=== PATIENT | female | born 1945 | race Caucasian/White ===

== ENCOUNTER 2016-05-16 09:02 | Day surgery (SDC) | payer MEDICARE, OTHER ==
[~2016-05-16 09:02] MED LIST: BUPIVACAINE HCL 0.75% INJ/PF (7.5 MG/1 ML) 10 ML SDV OD PRN; KETOROLAC TROMETHAMINE 0.45% 4 DROP/0.4 ML DROPERETTE OD PRN; LIDOCAINE 4% INJ/PF (40 MG/ML) 5 ML AMPUL OD PRN; TETRACAINE HCL 0.5% OPH SOLN 0.6 ML DROPERETTE OD PRN
[2016-05-16] MEDS: CYCLOPENTOLATE 0.2%/PHENYLEPHRINE 1% OPH SOLN 2 ML OD PRN ×3 (09:50→10:10)
[2016-05-16] MEDS: TROPICAMIDE 1% OPH SOLN 3 ML OD PRN ×3 (09:50→10:10)
[2016-05-16] MEDS: BESIFLOXACIN HCL 0.6% OPH SUSP 5 ML BOTTLE OD PRN ×3 (09:51→10:52)
[2016-05-16] MEDS ORDERED: EPINEPHRINE INJ/PF 1 MG/1 ML AMPULE ONE (10:02)
[2016-05-16] MEDS ORDERED: CHONDR SU A NA/HYALUR INTRAOC KIT (SURGICARE) ONE (10:03)
[2016-05-16] MEDS ORDERED: MIDAZOLAM 2 MG/2 ML INJ ONE (10:10)
[2016-05-16] MEDS ORDERED: FENTANYL CITRATE INJ/PF 100 MCG/2 ML AMPUL ONE (10:11)
--- NOTE | 2016-05-16 11:13 | [facility] OPERATIVE REPORT E ---
[facility] Operative Report NAME: INDRA MITCHELL AGE: 70Y DATE OF SURGERY: 05/16/2016 ROOM: [facility] Operative Report PREOPERATIVE DIAGNOSIS: CATARACT, RIGHT EYE. POSTOPERATIVE DIAGNOSIS: CATARACT, RIGHT EYE. PROCEDURE PERFORMED: PHACOEMULSIFICATION WITH ReSTOR LENS IMPLANT RIGHT EYE. SURGEON: DAVID MORENO MD ANESTHESIA: TOPICAL WITH MAC. INDICATIONS FOR SURGERY: Difficulty with glare with night driving. Best corrected visual acuity 20/40. PROCEDURE: The patient was brought to the Operating Room and placed on the operative table. Following tetracaine drops, topical anesthesia was administered. This consisted of instrument wipe pledgets soaked in a solution of 4% Xylocaine mixed with 0.75% Marcaine in a 1:2 ratio. A 2 x 1 cm pledget was placed in the superior fornix. A 1 x 1 cm pledget was placed in the inferior fornix. The eye was patched shut for 5 minutes. The patch was removed. The eye was sterilely prepped and draped in the usual manner. Lid speculum was placed in the eye. The pledgets were removed. 4-0 black silk sutures were placed around the superior and the inferior rectus muscles to be used as traction. A conjunctival peritomy was made at the 10 o'clock position. Hemostasis was obtained with bipolar cautery. A posterior limbal groove was created using a crescent knife and dissected anteriorly towards the cornea. A sharp point blade was used to create a paracentesis site at the 2 o'clock position. A 2.4 mm keratome was used to enter the anterior chamber through the groove. Viscoelastic was injected into the anterior chamber. An anterior capsulotomy was performed using Utrata forceps in a capsulorrhexis fashion. Hydrodissection and hydrodelineation were performed. Phacoemulsification was performed in thgylh-spa-zsfrdnn technique. A total of 1 minute phaco time was used. Following this, the I/A unit was used to remove residual cortex. Viscoelastic was injected into the capsular bag. Intraocular lens model [id number], 20.5 diopters, serial number [id number] was placed in the capsular bag. The I/A unit was used to remove residual viscoelastic. The wound was seen to be watertight under high and low pressure, and no sutures were placed. The intraocular lens was well centered. The pressure was adjusted in the eye to normal pressure. The 4-0 black silk sutures and lid speculum were removed. The eye was shielded after Besivance drops were placed. The patient tolerated the procedure well and was sent to the Recovery Room in good condition. DICTATING PHYSICIAN: DAVID MORENO M.D. DICTATING PHYSICIAN: DAVID MORENO M.D. [id number] PHY#: [id number] ID: [id number] JOB#: [id number] ACCT: [id number] cc:DAVID MORENO M.D. > MTDD
--- NOTE | 2016-05-16 11:14 | DISCHARGE SUMMARY E ---
Discharge Summary NAME: INDRA MITCHELL : 1945 AGE: 70Y ADMITTED: 05/16/2016 DISCHARGED: FINAL DIAGNOSIS: Cataract right eye. HOSPITAL COURSE: The patient is a 70-year-old lady who underwent uneventful cataract extraction with ReSTOR intraocular lens implant right eye on 05/16/16. She will be discharged to home. She is instructed to resume preoperative medications. Take Tylenol as needed for discomfort. Keep her eye shielded. to use besivance, ilevro and durezol at 3:00 p.m. and 8:00 p.m. Follow up in my office this afternoon DICTATING PHYSICIAN: DAVID MORENO M.D. [id number] PHY#: [id number] ID: [id number] JOB#: [id number] ACCT: [id number] cc:DAVID MORENO M.D. > MTDD
== END 2016-05-16 11:49 | disposition home or self-care (01) ==
LOC: SC 09:02
PROVIDERS: ATTEND Ophthalmology
PROC: 08RJ3JZ Replacement of Right Lens with Synthetic Substitute, Percutaneous Approach (ICD-10-PCS; principal; 2016-05-16 10:30)
DX: H25.13 Age-related nuclear cataract, bilateral (principal); E03.9 Hypothyroidism, unspecified; E78.00 Pure hypercholesterolemia, unspecified; I10 Essential (primary) hypertension; H16.223 Keratoconjunctivitis sicca, not specified as Sjogren's, bilateral; R51 Headache; Z79.899 Other long term (current) drug therapy
CPT/HCPCS: 66984; V2788; J2250; J3490 ×3; A9270; J0171; J3010; 142

== ENCOUNTER 2016-06-03 09:33 | Day surgery (SDC) | payer MEDICARE, OTHER ==
[~2016-06-03 09:33] MED LIST changes: -BUPIVACAINE HCL 0.75% INJ/PF (7.5 MG/1 ML) 10 ML SDV OD PRN; +BUPIVACAINE HCL 0.75% INJ/PF (7.5 MG/1 ML) 10 ML SDV OS PRN; -KETOROLAC TROMETHAMINE 0.45% 4 DROP/0.4 ML DROPERETTE OD PRN; +KETOROLAC TROMETHAMINE 0.45% 4 DROP/0.4 ML DROPERETTE OS PRN; -LIDOCAINE 4% INJ/PF (40 MG/ML) 5 ML AMPUL OD PRN; +LIDOCAINE 4% INJ/PF (40 MG/ML) 5 ML AMPUL OS PRN; -TETRACAINE HCL 0.5% OPH SOLN 0.6 ML DROPERETTE OD PRN
[2016-06-03] MEDS ORDERED: CHONDR SU A NA/HYALUR INTRAOC KIT (SURGICARE) ONE (09:47)
[2016-06-03] MEDS ORDERED: PHENYLEPHRINE/KETOROLAC 1%-0.3% 4 ML VIAL ONE (09:47)
[2016-06-03] MEDS: TETRACAINE HCL 0.5% OPH SOLN 0.6 ML DROPERETTE OS PRN ×2 (09:55→10:22)
[2016-06-03] MEDS: CYCLOPENTOLATE 0.2%/PHENYLEPHRINE 1% OPH SOLN 2 ML OS PRN ×3 (09:56→10:20)
[2016-06-03] MEDS: TROPICAMIDE 1% OPH SOLN 3 ML OS PRN ×3 (09:56→10:20)
[2016-06-03] MEDS: BESIFLOXACIN HCL 0.6% OPH SUSP 5 ML BOTTLE OS PRN ×4 (09:57→11:18)
[2016-06-03] MEDS ORDERED: FENTANYL CITRATE INJ/PF 100 MCG/2 ML AMPUL ONE (10:28)
[2016-06-03] MEDS ORDERED: MIDAZOLAM 2 MG/2 ML INJ ONE ×2 (10:28→10:53)
--- NOTE | 2016-06-03 11:33 | [facility] OPERATIVE REPORT E ---
[facility] Operative Report NAME: INDRA MITCHELL AGE: 70Y DATE OF SURGERY: 06/03/2016 ROOM: PREOPERATIVE DIAGNOSIS: CATARACT, LEFT EYE. POSTOPERATIVE DIAGNOSIS: CATARACT, LEFT EYE. PROCEDURE PERFORMED: Phacoemulsification with ReSTOR intraocular lens, left eye. SURGEON: DAVID MORENO M.D. ANESTHESIA: Topical with MAC. INDICATIONS FOR SURGERY: Difficulty reading with glare and imbalance after cataract surgery in the right eye. Best corrected visual acuity: 20/50. DESCRIPTION OF PROCEDURE: The patient was brought to the operating room and placed on the operative table. Following tetracaine drops, topical anesthesia was administered. This consisted of instrument wipe pledgets soaked in a solution of 4% Xylocaine mixed with 0.75% Marcaine in a 1:2 ratio. A 2 x 1 cm pledget was placed in the superior fornix. A 1 x 1 cm pledget was placed in the inferior fornix. The eye was patched shut for 5 minutes. The patch was removed. The eye was sterilely prepped and draped in the usual manner. Lid speculum was placed in the eye. The pledgets were removed, 4-0 black silk sutures were placed around the superior and the inferior rectus muscles to be used as traction. A conjunctival peritomy was made at the 10 o'clock position. Hemostasis was obtained with bipolar cautery. A posterior limbal groove was created using a crescent knife and dissected anteriorly towards the cornea. A sharp point blade was used to create a paracentesis site at the 2 o'clock position. A 2.4 mm keratome was used to enter the anterior chamber through the groove. Viscoelastic was injected into the anterior chamber. An anterior capsulotomy was performed using Utrata forceps in a capsulorrhexis fashion. Hydrodissection and hydrodelineation were performed. Phacoemulsification was performed in kajcts-xmm-pujqupo technique. A total of 1 minute 6 seconds total phaco time was used. Following this, the I/A unit was used to remove residual cortex. Viscoelastic was injected into the capsular bag. Intraocular lens Model [id number], 21.0 diopter, serial number [id number] was placed in the capsular bag. The I/A unit was used to removed residual viscoelastic. The wound was seen to be watertight under high and low pressure, and no sutures were placed. The intraocular lens was well centered. The pressure was adjusted in the eye to normal pressure. The 4-0 black silk sutures and lid speculum were removed. The eye was shielded after Besivance drops were placed. The patient tolerated the procedure well and was sent to the recovery room in good condition. DICTATING PHYSICIAN: DAVID MORENO M.D. [id number] PHY#: [id number] ID: [id number] JOB#: [id number] ACCT: [id number] cc:DAVID MORENO M.D. >
--- NOTE | 2016-06-03 11:38 | [facility]ARE DISCHARGE SUMMARY E ---
[facility] Discharge Summary NAME: INDRA MITCHELL AGE: 70Y ADMITTED: 06/03/2016 DISCHARGED: 06/03/2016 PREOPERATIVE DIAGNOSIS: CATARACT, LEFT EYE. POSTOPERATIVE DIAGNOSIS: CATARACT, LEFT EYE. HOSPITAL COURSE: Patient is a 70-year-old lady who underwent uneventful cataract extraction with ReSTOR intraocular lens implant, left eye, on 06/03/2016. DISPOSITION: She will be discharged to home. She was instructed to resume preoperative medications; take Tylenol as needed for discomfort; to keep her eye shielded; to use Besivance, Durezol, and Ilevro at 3:00 p.m. and 8:00 p.m.; and to follow up in my office in 1 day. DICTATING PHYSICIAN: DAVID MORENO M.D. [id number] PHY#: [id number] ID: [id number] JOB#: [id number] ACCT: [id number] cc:DAVID MORENO M.D. >
== END 2016-06-03 12:10 | disposition home or self-care (01) ==
LOC: SC 09:33
PROVIDERS: ATTEND Ophthalmology
PROC: 08RK3JZ Replacement of Left Lens with Synthetic Substitute, Percutaneous Approach (ICD-10-PCS; principal; 2016-06-03 11:00)
DX: H25.12 Age-related nuclear cataract, left eye (principal); Z96.1 Presence of intraocular lens; E07.9 Disorder of thyroid, unspecified; Z79.899 Other long term (current) drug therapy
CPT/HCPCS: 66984; V2788; J2250; J3490 ×3; A9270; J3010; C9447; 142

== ENCOUNTER → 2016-10-07 | Outpatient (CLI) | payer MEDICARE, OTHER ==
--- NOTE | 2016-10-07 18:02 | RADIOLOGY REPORT (SQ) ---
EXAM DESCRIPTION: MRI HEAD COMBO COMPLETED DATE/TIME: 10/07/2016 2:54 pm REASON FOR STUDY: HEADACHE (R51), OTHER FATIGUE (R53.83), HYPOTHYROIDISM (E03.9), NONSCARRING R51 H EADACHE R53.83 OTHER FATIGUE E03.9 HYPOTHYROIDISM, UNSPECIFIED COMPARISON: None. TECHNIQUE: Multiplanar imaging includes noncontrasted T1, T2, FLAIR, diffusion with ADC map and post gadolinium contrast T1 sequences. Images stored on PACS. Additional thin section sagittal and coronal T2, T1 precontrast, T1 postcontrast images through the p ituitary fossa were obtained. CONTRAST TYPE AND DOSE: 15 mL Multihance. RENAL FUNCTION: GFR > 60. LIMITATIONS: None. FINDINGS: Pituitary fossa: Pituitary gland is normal size for age, 6 mm craniocaudad by 11 mm AP x 1 2 mm transverse. A less than 2 mm cyst is present in the inferior aspect of the anterior lobe pituit marcia of doubtful significance. Pituitary infundibulum is midline. Suprasellar cistern is normal. Ca vernous sinuses are unremarkable CSF SPACES: Normal in size and contour. No hemorrhage. CEREBRUM: Extensive increase FLAIR/ T2 white matter signal in the bifrontal ossified vessels, and bip arietal white matter. May represent old demyelinating disease or diffuse small vessel ischemic salas e. No MR evidence of acute intracranial hemorrhage, acute ischemic change, acute hemorrhage or midli ne shift. POSTERIOR FOSSA: Chronic appearing high signal in the mid hugo likely carotid small vessel disease. N o hemorrhage. No edema, masses, or mass effect. Internal auditory canals, cerebellopontine angles, ma stoids normal. No enhancing lesions. No abnormal enhancement post contrast. DIFFUSION IMAGING: Negative for acute or subacute infarction. ORBITS: No masses. Globes post cataract surgery. PARANASAL SINUSES: No fluid levels. Mucosa normal. OTHER: No other significant finding. IMPRESSION: No findings worrisome for pituitary tumor. Tiny inferior aspect anterior lobe of doubtf ul significance. Diffuse white matter disease, either old demyelinating disease or chronic small vessel disease. EVIDENCE OF ACUTE STROKE: NO. TECHNICAL DOCUMENTATION: JOB ID: [id number] [employer]- All Rights Reserved
== END ==
LOC: RAD 13:17
PROVIDERS: ATTEND Nurse Practitioner Primary Care
DX: R51 Headache (principal); R53.83 Other fatigue; E03.9 Hypothyroidism, unspecified; L65.9 Nonscarring hair loss, unspecified
CPT/HCPCS: 70553; A9577

== ENCOUNTER 2019-07-10 12:57 | Emergency (ER) | payer MEDICARE, OTHER ==
--- NOTE | 2019-07-10 13:09 | ER Document Report ---
ED Medical Screen (RME) - General Chief Complaint: Nausea Stated Complaint: NAUSEA Time Seen by Provider: 07/10/19 13:03 Primary Care Provider: QUIANA CHOWDHURY NP [Primary Care Provider] - Follow up as needed Mode of Arrival: Ambulatory Information source: Patient Notes: 74-year-old female with history of high blood pressure presents to the emergency department with complaints of severe nausea for almost a month. She reports she did see her primary care provider and was diagnosed with gallstones. She reports she has had extreme nausea and cannot stand it. She reports she was also tested for COVID and that was negative. Denies fever vomiting diarrhea. She reports she took Zofran 3 hours ago without relief of symptoms. Patient reports she is supposed to follow-up with Dr. Mccann. He is supposed be called when she arrived. I did attempt to call Dr. Mccann at [phone] and he is not logged in. I have greeted and performed a rapid initial assessment of this patient. A comprehensive ED assessment and evaluation of the patient, analysis of test results and completion of the medical decision making process will be conducted by additional ED providers. TRAVEL OUTSIDE OF THE [place] IN LAST 30 DAYS: No - Related Data Allergies/Adverse Reactions: No Known Allergies Allergy (Verified 07/10/19 13:02) Past Medical History - Social History Chew tobacco use (# tins/day): No Frequency of alcohol use: None Drug Abuse: None - Past Medical History Cardiac Medical History: Reports: Hx Hypertension Denies: Hx Heart Attack Pulmonary Medical History: Denies: Hx Asthma Neurological Medical History: Denies: Hx Cerebrovascular Accident, Hx Seizures GI Medical History: Denies: Hx Hepatitis, Hx Hiatal Hernia, Hx Ulcer Infectious Medical History: Denies: Hx Hepatitis Past Surgical History: Reports: Hx Hysterectomy. Denies: Hx Mastectomy, Hx Open Heart Surgery, Hx Pacemaker Physical Exam - Vital signs Vitals: Temp Pulse Resp BP Pulse Ox 98.0 F 65 16 154/80 H 94 07/10/19 13:01 07/10/19 13:01 07/10/19 13:01 07/10/19 13:01 07/10/19 13:01 Course - Vital Signs Vital signs: Temp Pulse Resp BP Pulse Ox 98.0 F 65 16 154/80 H 94 07/10/19 13:03 07/10/19 13:01 07/10/19 13:01 07/10/19 13:01 07/10/19 13:01 Doctor's Discharge - Discharge Referrals: QUIANA CHOWDHURY BELT WEAVER [Primary Care Provider] - Follow up as needed
[2019-07-10 13:28] LABS: APPEARANCE,URINE CLEAR; BILIRUBIN,URINE NEGATIVE (NEGATIVE); COLOR,URINE YELLOW; GLUCOSE, URINE NEGATIVE (NEGATIVE); KETONES,URINE NEGATIVE (NEGATIVE); LEUKOCYTE ESTERASE,URINE TRACE (NEGATIVE); NITRITE,URINE NEGATIVE (NEGATIVE); PROTEIN,URINE NEGATIVE (NEGATIVE); URINE SPECIFIC GRAVITY 1.006; UROBILINOGEN,URINE NEGATIVE mg/dL (<2.0)
[2019-07-10] MEDS ORDERED: RINGERS SOLUTION,LACTATED 1,000 ML IV ONE (13:34)
[2019-07-10] MEDS ORDERED: METOCLOPRAMIDE HCL INJ/PF 10 MG/2 ML SDV IV ONE (13:34)
[2019-07-10 13:41] LABS: ABSOLUTE BASOPHILS # (AUTO) 0.1 10^3/uL (0.0-0.2); ABSOLUTE LYMPHOCYTES (AUTO) 1.6 10^3/uL (0.5-4.7); ABSOLUTE MONOCYTES (AUTO) 0.5 10^3/uL (0.1-1.4); ABSOLUTE NEUT (AUTO) 3.1 10^3/uL (1.7-8.2); EOSINOPHILS % (AUTO) 0.7 % (0-6); HEMATOCRIT 44.3 % (36.0-47.0); HEMOGLOBIN 15.1 g/dL (12.0-15.5); LYMPHOCYTES % (AUTO) 30.4 % (13-45); MEAN CORPUSCULAR HEMOGLOBIN 32.8 pg (27.0-33.4); MEAN CORPUSCULAR VOLUME 97 fl (80-97); PLATELET COUNT 233 10^3/uL (150-450); RED BLOOD COUNT 4.59 10^6/uL (3.72-5.28); SEGMENTED NEUTROPHILS % (AUTO) 58.9 % (42-78); TOTAL CELLS COUNTED % (AUTO) 100 %; WHITE BLOOD COUNT 5.3 10^3/uL (4.0-10.5)
--- NOTE | 2019-07-10 13:41 | ER Document Report ---
ED GI/ - General Chief Complaint: Nausea Stated Complaint: NAUSEA Time Seen by Provider: 07/10/19 13:03 Primary Care Provider: QUIANA CHOWDHURY NP [NURSE PRACTITIONER] - Follow up as needed JESUSITA MCCANN MD [ACTIVE STAFF] - Follow up in 3-5 days (Call office for an outpatient follow-up appointment.) Mode of Arrival: Ambulatory Information source: Patient Notes: 74-year-old female past medical history significant for hypertension, GERD, hypothyroidism, anxiety presents to the emergency room with persistent nausea and vomiting that started a month ago. Patient states she saw her primary care physician last was diagnosed with gallstones waiting to get a HIDA scan scheduled. Patient states the nausea vomiting has gotten persistently worse. Is able to tolerate fluids but no food. States that she is supposed be following up with Dr. Mccann triage attempted to call him on her arrival without success. She denies any fevers, no abdominal pain. TRAVEL OUTSIDE OF THE [place] IN LAST 30 DAYS: No - Related Data Allergies/Adverse Reactions: No Known Allergies Allergy (Verified 07/10/19 13:02) Past Medical History - General Information source: Patient - Social History Smoking Status: Never Smoker Chew tobacco use (# tins/day): No Frequency of alcohol use: None Drug Abuse: None Family History: Reviewed & Not Pertinent Patient has homicidal ideation: No - Past Medical History Cardiac Medical History: Reports: Hx Hypertension Denies: Hx Heart Attack Pulmonary Medical History: Denies: Hx Asthma Neurological Medical History: Denies: Hx Cerebrovascular Accident, Hx Seizures GI Medical History: Denies: Hx Hepatitis, Hx Hiatal Hernia, Hx Ulcer Infectious Medical History: Denies: Hx Hepatitis Past Surgical History: Reports: Hx Hysterectomy. Denies: Hx Mastectomy, Hx Open Heart Surgery, Hx Pacemaker Physical Exam - Vital signs Vitals: Temp Pulse Resp BP Pulse Ox 98.0 F 65 16 154/80 H 94 07/10/19 13:01 07/10/19 13:01 07/10/19 13:01 07/10/19 13:01 07/10/19 13:01 - General General appearance: Appears well, Alert In distress: Moderate - Respiratory Respiratory status: No respiratory distress Chest status: Nontender Breath sounds: Normal Chest palpation: Normal - Cardiovascular Rhythm: Regular Heart sounds: Normal auscultation Murmur: No - Abdominal Inspection: Normal Distension: No distension Bowel sounds: Normal Tenderness: Nontender Organomegaly: No organomegaly - Neurological Neuro grossly intact: Yes Cognition: Normal Orientation: AAOx4 [place] Coma Scale Eye Opening: Spontaneous Luz Coma Scale Verbal: Oriented [place] Coma Scale Motor: Obeys Commands Luz Coma Scale Total: 15 Speech: Normal Motor strength normal: LUE, RUE, LLE, RLE Sensory: Normal - Skin Skin Temperature: Warm Skin Moisture: Dry Skin Color: Normal Course - Re-evaluation Re-evalutation: 07/10/19 14:10 Reviewed lab and ultrasound results with patient. Aware that I have spoken with Dr. Mccann who recommends a cardiac enzymes, CT abdomen and pelvis with IV co ntrast only. Patient is agreeable to additional testing. Complains of persistent nausea will medicate with Phenergan and reevaluate. 07/10/19 15:31 Patient is resting comfortably at this time. Denies any nausea, able to tolerate p.o. fluids. Aware that I have spoken with Dr. Mccann again and all test results were reviewed with him. We will see patient as an outpatient for possible endoscopy. Patient was counseled to take the Phenergan as prescribed. She was given strict return to the emergency room guidelines. Call Dr. Mccann office for a follow-up appointment to discuss possible upper endoscopy. She is to return to the emergency room for any new or worsening symptoms. All que stions were answered. Patient verbalized understanding and agree with plan of care. - Vital Signs Vital signs: Temp Pulse Resp BP Pulse Ox 98.0 F 65 16 154/80 H 94 07/10/19 13:03 07/10/19 13:01 07/10/19 13:01 07/10/19 13:01 07/10/19 13:01 - Laboratory Result Diagrams: 07/10/19 13:29 07/10/19 13:29 Laboratory results interpreted by me: 07/10/19 07/10/19 13:17 13:29 Carbon Dioxide 31 H Ur Leukocyte Esterase TRACE H - Diagnostic Test Radiology reviewed: Reports reviewed - EKG Interpretation by Ar EKG shows normal: Sinus rhythm Additional EKG results interpreted by me: 07/10/19 13:35 EKG was interpreted by ED physician Dr. Benavides No acute STEMI - Consults Dr. Mccann Time consulted: 14:10 Reason for consultation: 07/10/19 14:22 Sent by PCP for possible gallstones. Would like call back after we get the CAT scan and cardiac enzymes. 07/10/19 15:[address] Mccann reviewed all labs, EKG, and CT scan. Patient is comfortable at this time denies any nausea remains pain-free. He will follow her up as an outpatient for possible upper endoscopy. Agrees with evaluation, agrees with plan, agrees with discharging patient home. Consulted provider: follow-up in office Discharge - Discharge Clinical Impression: Nausea & vomiting Qualifiers: Vomiting type: unspecified Vomiting Intractability: non-intractable Qualified Code(s): R11.2 - Nausea with vomiting, unspecified Condition: Stable Disposition: HOME, SELF-CARE Instructions: Antinausea Medication ([facility]), Vomiting ([facility]) Additional Instructions: Continue to push fluids, bland diet, outpatient follow-up with Dr. Mccann as discussed. Phenergan as prescribed. Return to the emergency room for any new or worsening symptoms. Prescriptions: Promethazine HCl [Phenergan 25 mg Tablet] 1 tab PO Q6H PRN #15 tablet PRN Reason: Referrals: QUIANA CHOWDHURY NP [NURSE PRACTITIONER] - Follow up as needed JESUSITA MCCANN MD [ACTIVE STAFF] - Follow up in 3-5 days (Call office for an outpatient follow-up appointment.)
--- NOTE | 2019-07-10 13:57 | RADIOLOGY REPORT (SQ) ---
EXAM DESCRIPTION: U/S ABDOMEN LIMITED W/O DOP IMAGES COMPLETED DATE/TIME: 07/10/2019 1:48 pm REASON FOR STUDY: hx of gallstones, nausea COMPARISON: None. TECHNIQUE: Dynamic and static grayscale images acquired of the abdomen and recorded on PACS. Additio nal selected color Doppler and spectral images recorded. LIMITATIONS: None. FINDINGS: PANCREAS: No masses. Visualized pancreatic duct normal caliber. LIVER: No masses. Echotexture normal. LIVER VASCULATURE: Normal directional flow of the main portal vein and hepatic veins. GALLBLADDER: No stones. Normal wall thickness. No pericholecystic fluid. ULTRASOUND-DETECTED THOMAS'S SIGN: Negative. INTRAHEPATIC DUCTS AND COMMON DUCT: CBD and intrahepatic ducts normal caliber. No filling defects. INFERIOR VENA CAVA: Normal flow. AORTA: No aneurysm. RIGHT KIDNEY: Normal size. Normal echogenicity. No solid or suspicious masses. No hydronephrosis. No calcifications. PERITONEAL AND RIGHT PLEURAL SPACE: No ascites or effusions. OTHER: No other significant findings. IMPRESSION: NORMAL RIGHT UPPER QUADRANT ULTRASOUND. TECHNICAL DOCUMENTATION: JOB ID: [id number] [employer]- All Rights Reserved Reading location - IP/workstation name: [email or web address]
[2019-07-10 14:02] LABS: ALBUMIN 4.6 g/dL (3.5-5.0); ALKALINE PHOSPHATASE 60 U/L (38-126); AMYLASE 85 U/L (30-110); ANION GAP 7 (5-19); ASPARTATE AMINO TRANSFERASE 26 U/L (14-36); BILIRUBIN,TOTAL 0.6 mg/dL (0.2-1.3); BLOOD UREA NITROGEN 8 mg/dL (7-20); CALCIUM 9.8 mg/dL (8.4-10.2); CARBON DIOXIDE 31 mmol/L (22-30); CHLORIDE 101 mmol/L (98-107); GLUCOSE 100 mg/dL (75-110)
[2019-07-10] MEDS ORDERED: PROMETHAZINE HCL INJ 25 MG/1 ML VIAL IV ONE (14:20)
[2019-07-10 14:47] LABS: CREATINE KINASE MB 0.35 ng/mL (<4.55)
[2019-07-10 14:48] LABS: TROPONIN I < 0.012 ng/mL
--- NOTE | 2019-07-10 15:06 | RADIOLOGY REPORT (SQ) ---
EXAM DESCRIPTION: CT ABD/PELVIS WITH IV ONLY IMAGES COMPLETED DATE/TIME: 07/10/2019 2:51 pm REASON FOR STUDY: nausea COMPARISON: None. TECHNIQUE: CT scan of the abdomen and pelvis performed using helical scanning technique with dynamic intravenous contrast injection. No oral contrast. Images reviewed with lung, soft tissue, and bone windows. Reconstructed coronal and sagittal MPR images reviewed. Delayed images for evaluation of the urinary system also acquired. All images stored on PACS. All CT scanners at this facility use dose modulation, iterative reconstruction, and/or weight based d osing when appropriate to reduce radiation dose to as low as reasonably achievable (ALARA). [facility]: Dose Right [facility]: CareDose [facility]: Dose Right [facility]: Teradose 4D [facility]: [facility] CONTRAST TYPE AND DOSE: contrast/concentration: Isovue 350.00 mg/ml; Total Contrast Delivered: 80.0 ml; Total Saline Delivered: 68.0 ml RENAL FUNCTION: BUN 8 creatinine 0.72. RADIATION DOSE: CT Rad equipment meets quality standard of care and radiation dose reduction techniq ues were employed. CTDIvol: 5.5 - 6.8 mGy. DLP: 635 mGy-cm.. LIMITATIONS: None. FINDINGS: LOWER CHEST: No significant findings. No nodules or infiltrates. LIVER: Normal size. No masses. No dilated ducts. SPLEEN: Normal size. No focal lesions. PANCREAS: No masses. No significant calcifications. No adjacent inflammation or peripancreatic fluid collections. Pancreatic duct not dilated. GALLBLADDER: No identified stones by CT criteria. No inflammatory changes to suggest cholecystitis. ADRENAL GLANDS: No significant masses or asymmetry. RIGHT KIDNEY AND URETER: No solid masses. No significant calcifications. No hydronephrosis or hyd roureter. LEFT KIDNEY AND URETER: No solid masses. No significant calcifications. No hydronephrosis or hydr oureter. AORTA AND VESSELS: No aneurysm. No dissection. Renal arteries, SMA, celiac without stenosis. RETROPERITONEUM: No retroperitoneal adenopathy, hemorrhage or masses. BOWEL AND PERITONEAL CAVITY: No masses or inflammatory changes. No free fluid or peritoneal masses. APPENDIX: Not visualized. PELVIS: No mass. No free fluid. Normal bladder. ABDOMINAL WALL: No masses. No hernias. BONES: No significant or acute findings. OTHER: No other significant finding. IMPRESSION: NO SIGNIFICANT OR ACUTE FINDING IN THE ABDOMEN OR PELVIS ON CT SCAN WITH IV CONTRAST. TECHNICAL DOCUMENTATION: JOB ID: [id number] Quality ID # [id number]: Final reports with documentation of one or more dose reduction techniques (e.g., Au tomated exposure control, adjustment of the mA and/or kV according to patient size, use of iterative reconstruction technique) 2010 [employer]- All Rights Reserved Reading location - IP/workstation name: [email or web address]
[2019-07-10 16:06] VITALS: BP 103/74
--- NOTE | 2019-07-10 20:24 | EKG REPORT ---
SEVERITY:- BORDERLINE ECG - SINUS RHYTHM PROBABLE LEFT ATRIAL ABNORMALITY : Confirmed by: Keena Smith MD 10-Jul-2019 20:24:15
== END 2019-07-10 16:10 | disposition home or self-care (01) ==
LOC: ER 12:57
DX: R11.2 Nausea with vomiting, unspecified (principal); I10 Essential (primary) hypertension; K21.9 Gastro-esophageal reflux disease without esophagitis; E03.9 Hypothyroidism, unspecified; F41.9 Anxiety disorder, unspecified
CPT/HCPCS: 93005; 99284; 96361; 96374; 96375; 36415; 82553; 82150; 82550; 83690; 85025; 80053; 81001; 84484; 76705; 74177; 93010; J2765; J2550; J7120

== ENCOUNTER 2019-07-15 13:05 | Inpatient (IN) | payer MEDICARE, OTHER ==
[2019-07-15] MEDS ORDERED: NORMAL SALINE 1000 ML 2,000 ML IV ONE (14:15)
[2019-07-15 15:04] LABS: ALBUMIN 3.8 g/dL (3.5-5.0); ALKALINE PHOSPHATASE 53 U/L (38-126); AMYLASE 61 U/L (30-110); ANION GAP 7 (5-19); ASPARTATE AMINO TRANSFERASE 24 U/L (14-36); BILIRUBIN,TOTAL 0.5 mg/dL (0.2-1.3); BLOOD UREA NITROGEN 6 mg/dL (7-20); CARBON DIOXIDE 28 mmol/L (22-30); CHLORIDE 105 mmol/L (98-107); GLUCOSE 90 mg/dL (75-110); POTASSIUM 3.7 mmol/L (3.6-5.0); TOTAL PROTEIN 6.6 g/dL (6.3-8.2)
[2019-07-15] MEDS: DEXTROSE 5%-LACTATED RINGERS 1,000 ML IV PRN ×2 (16:33→23:03)
--- NOTE | 2019-07-15 16:36 | PDOC H&P ---
History of Present Illness Admission Date/PCP: 07/15/19 13:05 BRUNO MENDEZ MD Patient complains of: Chronic nausea dry heaves with satiety History of Present Illness: INDRA MITCHELL is a 74 year old female who presents with complaints of nausea and dry heaves patient came to the surgical office today for consult with Dr. Siobhan mulligan complaining of extreme nausea and vomiting however the vomiting is not productive and only dry heaves. Patient states that she has had excessive belching and bloating. Patient states that she has had an abdominal ultra sound [facility] on 07/07/2019 with findings of gallstones she states that she is unable to eat due to the nausea has not lost approximately 10 pounds in the last 10 days patient states that she has had constant nausea patient is scheduled for an EGD on 07/27/2019 She states she has had a loss of her appetite unable to have bowel movements and has not had a normal bowel movement in the last 7 to 10 days admitted to hospital today for further work-up. In addition to that she is underwent 2 CT scans of her abdomen pelvis over the last few days one at [facility] 2 days ago and went [place] here at the [facility] 6 days ago both studies were interpreted as normal she denies any his tory of ulcer disease she denies any history of cancer she is also seen at least 3 separate primary care physicians for these complaints she is very complains of being very anxious states that she has an anxiety disorder is on Prozac which was recently switched to Lexapro and then back to Prozac Past Medical History Cardiac Medical History: Reports: Hypertension Denies: Myocardial Infarction Pulmonary Medical History: Denies: Asthma Neurological Medical History: Denies: Seizures GI Medical History: Denies: Hepatitis, Hiatal Hernia Psychiatric Medical History: Reports: Depression Hematology: Denies: Anemia, Sickle Cell Disease Past Surgical History Past Surgical History: Reports: Hysterectomy Denies: Amputation, Mastectomy, Pacemaker Social History Smoking Status: Former Smoker Number of Years Smokin Last Time Smoked: 60 Frequency of Alcohol Use: None Hx Recreational Drug Use: No Drugs: None Hx Prescription Drug Abuse: No Family History Family History: Reviewed & Not Pertinent Parental Family History Reviewed: No Children Family History Reviewed: NA Sibling(s) Family History Reviewed.: NA Medication/Allergy Home Medications: Levothyroxine Sodium [Synthroid 50 Mcg Tablet] 50 mcg PO Q2D 05/12/16 Promethazine HCl [Phenergan 25 mg Tablet] 1 tab PO Q6H PRN #15 tablet 07/10/19 Alprazolam [Xanax 0.5 mg Tablet] 0.5 mg PO BIDP PRN 07/15/19 Fluoxetine HCl 10 mg PO DAILY 07/15/19 Hormone Cream 1 applic TP DAILY 07/15/19 Levothyroxine Sodium [Synthroid 0.025 mg Tablet] 25 mcg PO Q2D 07/15/19 Metoprolol Succinate [[place] Sprinkle] 25 mg PO DAILY 07/15/19 Omeprazole 40 mg PO DAILY 07/15/19 Ondansetron HCl 4 mg PO Q6HP PRN 07/15/19 Allergies/Adverse Reactions: No Known Allergies Allergy (Verified 07/10/19 13:02) Review of Systems Constitutional: PRESENT: anorexia, fatigue, weakness Eyes: ABSENT: as per HPI, visual disturbances, other Ears: ABSENT: as per HPI, hearing changes, other Nose, Mouth, and Throat: ABSENT: as per HPI, headache(s), mouth pain, sore throat, vertigo, other Breasts: ABSENT: as per HPI, other Cardiovascular: ABSENT: as per HPI, chest pain, dyspnea on exertion, edema, orthropnea, palpitations, other Respiratory: ABSENT: as per HPI, cough, dyspnea, hemoptysis, sputum, other Gastrointestinal: PRESENT: abdominal pain, bloating, constipation, heartburn, nausea, vomiting Genitourinary: ABSENT: as per HPI, difficulty urinating, dysuria, hematuria, nocturia, other Musculoskeletal: ABSENT: as per HPI, back pain, deformity, joint swelling, muscle weakness, other Integumentary: ABSENT: as per HPI, diaphoresis, erythema, lesions, pruritus, rash, wounds, other Neurological: ABSENT: as per HPI, abnormal gait, abnormal movements, abnormal speech, confusion, convulsions, dizziness, focal weakness, frequent falls, lack of coordination, memory loss, numbness, paresthesias, restless legs, syncope, tingling, tremor(s), vertigo, weakness, other Psychiatric: ABSENT: as per HPI, anxiety, depression, hallucinations, homidical ideation, suicidal ideation, other Endocrine: ABSENT: as per HPI, cold intolerance, flushing, heat intolerance, menstrual abnormalities, polydipsia, polyphagia, polyuria, other Hematologic/Lymphatic: ABSENT: as per HPI, easy bleeding, easy bruising, lymphadenopathy, other Allergic/Immunologic: ABSENT: as per HPI, seasonal rhinorrhea, other Physical Exam Vital Signs: Temp Pulse Resp BP Pulse Ox 98.6 F 63 16 151/69 H 99 07/15/19 14:33 07/15/19 14:33 07/15/19 14:33 07/15/19 14:33 07/15/19 14:33 Intake & Output 07/14/19 07/15/19 07/16/19 06:59 06:59 06:59 Weight 54.1 kg General appearance: PRESENT: no acute distress Head exam: PRESENT: normocephalic Eye exam: PRESENT: EOMI Mouth exam: PRESENT: dry mucosa Neck exam: PRESENT: full ROM Respiratory exam: PRESENT: clear to auscultation sagar Cardiovascular exam: PRESENT: RRR Pulses: PRESENT: normal femoral pulses, normal dorsalis pedis pul Vascular exam: PRESENT: normal capillary refill Breast: PRESENT: Normal GI/Abdominal exam: PRESENT: soft, tenderness - Epigastric tenderness to deep palpation Rectal exam: PRESENT: deferred Gentrourinary exam: ABSENT: ecchymosis, erythema, lacerations, lesions, scrotal swelling, testicular tenderness, urethral discharge, indwelling catheter, other Extremities exam: ABSENT: calf tenderness, clubbing, full ROM, joint swelling, pedal edema, tenderness, +1 edema, +2 edema, other Neurological exam: PRESENT: alert, altered, awake, oriented to person Psychiatric exam: PRESENT: anxious Skin exam: PRESENT: dry Results Laboratory Results: 07/15/19 14:37 07/15/19 14:37 Sodium 140.0 Potassium 3.7 Chloride 105 Carbon Dioxide 28 Anion Gap 7 BUN 6 L Creatinine 0.73 Est GFR ( Amer) > 60 Glucose 90 Calcium 9.0 Total Bilirubin 0.5 AST 24 Alkaline Phosphatase 53 Total Protein 6.6 Albumin 3.8 Amylase 61 Lipase 73.0 Assessment & Plan - Plan Summary Plan Summary: Impression abdominal pain chronic nausea vomiting early satiety weight loss. 2. Constipation. #3 cholelithiasis. #4 rule out gastric pathology. Plan #1 patient is admitted to the hospital for further work-up. 2. Patient is constipated as seen on her CT scan and states that she has not had a bowel movement in last 7 to 10 days we will start her on GoLYTELY this evening. 3. If she does not get symptomatic relief with the GoLYTELY and has continued epigastric abdominal pain after she starts passing stool then we will consider upper endoscopy and consider a laparoscopic cholecystectomy if the upper endoscopy is negative. 4. I have reviewed her CT scan and do not see any obvious intra-abdominal pathology that could explain the chronic nausea other than a large abundant amount of stool in her colon diffusely.
[2019-07-15] MEDS ORDERED: PEG 3350/NA SULF,BICARB,CL/KCL 4000 ML PO ONE (17:30)
[2019-07-16] MEDS: PROMETHAZINE HCL INJ 25 MG/1 ML VIAL IV PRN ×3 (03:52→22:11)
[2019-07-16] MEDS: DEXTROSE 5%-LACTATED RINGERS 1,000 ML IV PRN ×3 (03:52→22:11)
--- NOTE | 2019-07-16 09:51 | PDOC PROGRESS REPORT ---
Subjective Progress Note for:: 07/16/19 Subjective:: This is a 74-year-old female with complaints of nausea and vomiting that is persistent. The patient continues to complain of nausea, however has had no vomiting since admission. She drank a GoLYTELY prep without any difficulty. She is tolerating clear liquids without difficulty. She denies any significant abdominal pain. She has had multiple bowel movements overnight, without sign of bleeding or melena. She denies chest pain, shortness of breath, fevers, chills, dizziness, headache, blurry vision. She does report malaise and weakness. Reason For Visit: CHOLELITHIASIS, RUQ, NAUSEA, Physical Exam Vital Signs: Temp Pulse Resp BP Pulse Ox 98.4 F 72 16 169/81 H 99 07/16/19 08:00 07/16/19 08:00 07/16/19 08:00 07/16/19 08:00 07/16/19 08:00 Intake & Output 07/15/19 07/16/19 07/17/19 06:59 06:59 06:59 Intake Total 3698 Balance 3698 Weight 67.2 kg General appearance: PRESENT: no acute distress, cooperative Head exam: PRESENT: atraumatic, normocephalic Eye exam: PRESENT: EOMI, PERRLA. ABSENT: scleral icterus Mouth exam: PRESENT: moist, neck supple Neck exam: ABSENT: meningismus, tenderness, thyromegaly, tracheal deviation Respiratory exam: PRESENT: unlabored. ABSENT: chest wall tenderness, tachypnea, wheezes Cardiovascular exam: ABSENT: tachycardia Vascular exam: PRESENT: normal capillary refill. ABSENT: pallor GI/Abdominal exam: PRESENT: soft. ABSENT: distended, firm, guarding, tenderness Rectal exam: PRESENT: deferred Extremities exam: ABSENT: clubbing Musculoskeletal exam: ABSENT: deformity Neurological exam: PRESENT: alert, awake, oriented to person, oriented to place, oriented to time, oriented to situation, CN II-XII grossly intact. ABSENT: motor sensory deficit Psychiatric exam: ABSENT: agitated, anxious, depressed Focused psych exam: ABSENT: delusional Skin exam: ABSENT: cyanosis, erythema, jaundice Results Laboratory Results: 07/15/19 14:37 07/15/19 14:37 Sodium 140.0 Potassium 3.7 Chloride 105 Carbon Dioxide 28 Anion Gap 7 BUN 6 L Creatinine 0.73 Est GFR ( Amer) > 60 Glucose 90 Calcium 9.0 Total Bilirubin 0.5 AST 24 Alkaline Phosphatase 53 Total Protein 6.6 Albumin 3.8 Amylase 61 Lipase 73.0 Assessment & Plan - Diagnosis (1) Nausea & vomiting Qualifiers: Vomiting type: unspecified Vomiting Intractability: non-intractable Qualified Code(s): R11.2 - Nausea with vomiting, unspecified Is this a current diagnosis for this admission?: Yes - Plan Summary Plan Summary: This is a 74-year-old female admitted with nausea and vomiting. The patient continues to complain of nausea, however her has had no vomiting. She tolerated a bowel prep without difficulty. She has had multiple loose bowel movements. I have reviewed her CT scan personally. It is normal. Her lab work is normal. At this time, I do not have a good reason for her to have nausea or vomiting. I will order a repeat right upper quadrant ultrasound in an effort to identify any sign of cholecystitis, or obvious obstructing gallstone. Continue with clear liquids for now. Continue symptomatic therapy for now.
--- NOTE | 2019-07-16 14:59 | RADIOLOGY REPORT (SQ) ---
EXAM DESCRIPTION: U/S ABDOMEN LIMITED W/O DOP IMAGES COMPLETED DATE/TIME: 07/16/2019 2:35 pm REASON FOR STUDY: persistent nausea R11.2 NAUSEA WITH VOMITING, UNSPECIFIED COMPARISON: Right upper quadrant ultrasound 07/10/2019 07/10/2019 CT abdomen pelvis TECHNIQUE: Dynamic and static grayscale images acquired of the abdomen and recorded on PACS. Additio nal selected color Doppler and spectral images recorded. LIMITATIONS: None. FINDINGS: PANCREAS: Midline pancreas unremarkable. LIVER: No masses. Echotexture normal. LIVER VASCULATURE: Normal directional flow of the main portal vein and hepatic veins. GALLBLADDER: No stones. Normal wall thickness. No pericholecystic fluid. Tiny less than 3 mm gallbla dder polyp ULTRASOUND-DETECTED THOMAS'S SIGN: Negative. INTRAHEPATIC DUCTS AND COMMON DUCT: CBD and intrahepatic ducts normal caliber. No filling defects. D istal most common duct not well seen due to duodenum gas INFERIOR VENA CAVA: Normal flow. AORTA: No aneurysm. RIGHT KIDNEY: Normal size. Normal echogenicity. No solid or suspicious masses. No hydronephrosis. No calcifications. PERITONEAL AND RIGHT PLEURAL SPACE: No ascites or effusions. OTHER: No other significant findings. IMPRESSION: NORMAL RIGHT UPPER QUADRANT ULTRASOUND. TECHNICAL DOCUMENTATION: JOB ID: [id number] [employer]- All Rights Reserved Reading location - IP/workstation name: [email or web address]
[2019-07-16 16:25] LABS: ABSOLUTE EOSINOPHILS # (AUTO) 0.1 10^3/uL (0.0-0.6); ABSOLUTE MONOCYTES (AUTO) 0.5 10^3/uL (0.1-1.4); BASOPHILS % (AUTO) 0.6 % (0-2); TOTAL CELLS COUNTED % (AUTO) 100 %
[2019-07-16 16:32] LABS: ABSOLUTE LYMPHOCYTES (AUTO) 1.5 10^3/uL (0.5-4.7); ABSOLUTE NEUT (AUTO) 2.1 10^3/uL (1.7-8.2); EOSINOPHILS % (AUTO) 1.5 % (0-6); HEMATOCRIT 39.5 % (36.0-47.0); HEMOGLOBIN 13.2 g/dL (12.0-15.5); LYMPHOCYTES % (AUTO) 34.8 % (13-45); MEAN CORPUSCULAR HEMOGLOBIN 32.2 pg (27.0-33.4); MEAN CORPUSCULAR HGB CONC 33.5 g/dL (32.0-36.0); MEAN CORPUSCULAR VOLUME 96 fl (80-97); MONOCYTES % (AUTO) 11.9 % (3-13); PLATELET COUNT 163 10^3/uL (150-450); RED BLOOD COUNT 4.11 10^6/uL (3.72-5.28); RED CELL DISTRIBUTION WIDTH 13.9 % (11.5-14.0); SEGMENTED NEUTROPHILS % (AUTO) 51.2 % (42-78); WHITE BLOOD COUNT 4.2 10^3/uL (4.0-10.5)
[2019-07-16 17:00] LABS: FREE T3 3.91 pg/mL (2.77-5.27); FREE T4 (FREE THYROXINE) 1.6 ng/dL (0.78-2.19)
[2019-07-16 17:13] LABS: THYROID STIMULATING HORMONE 0.33 uIU/mL (0.47-4.68)
[2019-07-16] MEDS: LEVOTHYROXINE SODIUM 0.025 MG TABLET PO SCH (17:16)
[2019-07-16] MEDS: ALPRAZOLAM 0.5 MG TABLET PO PRN (18:17)
[2019-07-16] MEDS: SUCRALFATE 1 GM TABLET PO SCH (22:12)
[2019-07-17] MEDS ORDERED: DEXTROSE 40% GEL 15 GM TUBE PO PRN ×2 (04:45)
[2019-07-17] MEDS ORDERED: DEXTROSE 50%-WATER 25 GM/50 ML DISP.SYRIN IV PRN ×2 (04:45)
[2019-07-17] MEDS ORDERED: GLUCAGON,HUMAN RECOMB 1 MG INJ SUBCUT PRN (04:45)
[2019-07-17] MEDS: ALPRAZOLAM 0.5 MG TABLET PO PRN ×2 (05:00→15:44)
[2019-07-17] MEDS: LEVOTHYROXINE SODIUM 0.05 MG TABLET PO SCH (05:01)
[2019-07-17] MEDS: DEXTROSE 5%-LACTATED RINGERS 1,000 ML IV PRN ×2 (05:01→18:17)
[2019-07-17] MEDS: PANTOPRAZOLE SODIUM 40 MG TABLET.DR PO SCH (09:11)
[2019-07-17] MEDS: SUCRALFATE 1 GM TABLET PO SCH ×4 (09:11→21:34)
[2019-07-17] MEDS: METOPROLOL SUCCINATE 25 MG TAB.SR.24H PO SCH (09:11)
[2019-07-17] MEDS: FLUOXETINE HCL 20 MG/5 ML UDCUP PO SCH (09:12)
[2019-07-17] MEDS ORDERED: (PENDING PHARMACY ID) (Fluoxetine Hcl [Fluoxetine Hcl] 10 MG) PO SCH (10:00)
[2019-07-17] MEDS ORDERED: (PENDING PHARMACY ID) (Metoprolol Succinate [Kapspargo Sprinkle] 25 MG) PO SCH (10:00)
--- NOTE | 2019-07-17 19:07 | PDOC PROGRESS REPORT ---
Subjective Progress Note for:: 07/17/19 Subjective:: This is a 74-year-old female with complaints of nausea that is persistent. The patient continues to complain of nausea, however has had no witnessed vomiting since admission. She continues to tolerate clear liquids without difficulty. She denies any significant abdominal pain. She has had multiple bowel movements, without sign of bleeding or melena. She denies chest pain, shortness of breath, fevers, chills, dizziness, headache, blurry vision. She does report malaise and weakness. Reason For Visit: CHOLELITHIASIS, RUQ, NAUSEA, Physical Exam Vital Signs: Temp Pulse Resp BP Pulse Ox 98.5 F 58 L 16 159/71 H 99 07/17/19 10:58 07/17/19 10:58 07/17/19 10:58 07/17/19 10:58 07/17/19 10:58 Intake & Output 07/16/19 07/17/19 07/18/19 06:59 06:59 06:59 Intake Total 3698 3657 1680 Balance 3698 3657 1680 Weight 67.2 kg 58.1 kg 58.1 kg Exam: General appearance: PRESENT: no acute distress, cooperative Head exam: PRESENT: atraumatic, normocephalic Eye exam: PRESENT: EOMI, PERRLA. ABSENT: scleral icterus Mouth exam: PRESENT: moist, neck supple Neck exam: ABSENT: meningismus, tenderness, thyromegaly, tracheal deviation Respiratory exam: PRESENT: unlabored. ABSENT: chest wall tenderness, tachypnea, wheezes Cardiovascular exam: ABSENT: tachycardia Vascular exam: PRESENT: normal capillary refill. ABSENT: pallor GI/Abdominal exam: PRESENT: soft. ABSENT: distended, firm, guarding, tenderness Rectal exam: PRESENT: deferred Extremities exam: ABSENT: clubbing Musculoskeletal exam: ABSENT: deformity Neurological exam: PRESENT: alert, awake, oriented to person, oriented to place, oriented to time, oriented to situation, CN II-XII grossly intact. ABSENT: motor sensory deficit Psychiatric exam: ABSENT: agitated, anxious, depressed Focused psych exam: ABSENT: delusional Skin exam: ABSENT: cyanosis, erythema, jaundice Results Laboratory Results: 07/16/19 16:03 07/15/19 14:37 Impressions: Abdomen Ultrasound 07/16/19 00:00 IMPRESSION: NORMAL RIGHT UPPER QUADRANT ULTRASOUND. Assessment & Plan - Diagnosis (1) Nausea & vomiting Qualifiers: Vomiting type: unspecified Vomiting Intractability: non-intractable Qualified Code(s): R11.2 - Nausea with vomiting, unspecified Is this a current diagnosis for this admission?: Yes - Plan Summary Plan Summary: This is a 74-year-old female admitted with nausea. The patient continues to complain of nausea, however her has had no vomiting. She tolerated a bowel prep without difficulty. And continues to tolerate clear liquids. Her CT scan is normal. Her lab work is normal. Her right upper quadrant ultrasound is unremarkable, except for a small gallbladder polyp. At this time, I do not have a good reason for her to have persistent nausea. Plan for EGD and colonoscopy t omorrow. Likely discharge after endoscopic evaluation, as she has no sign of cholecystitis or other acute medical abnormality
[2019-07-17] MEDS: ONDANSETRON HCL INJ/PF 4 MG/2 ML SDV IV PRN (19:28)
[2019-07-18] MEDS: LEVOTHYROXINE SODIUM 0.025 MG TABLET PO SCH (05:51)
[2019-07-18] MEDS: DEXTROSE 5%-LACTATED RINGERS 1,000 ML IV PRN ×2 (05:56→18:40)
[2019-07-18] MEDS: SUCRALFATE 1 GM TABLET PO SCH ×2 (08:58→11:12)
[2019-07-18] MEDS: FLUOXETINE HCL 20 MG/5 ML UDCUP PO SCH ×2 (09:27→15:42)
[2019-07-18] MEDS: PANTOPRAZOLE SODIUM 40 MG TABLET.DR PO SCH (09:27)
[2019-07-18] MEDS: METOPROLOL SUCCINATE 25 MG TAB.SR.24H PO SCH ×2 (09:28→15:44)
[2019-07-18] MEDS ORDERED: LIDOCAINE 2% INJ-PF (100 MG/5 ML) SYRINGE ONE (10:48)
[2019-07-18] MEDS ORDERED: PROPOFOL INJ 200 MG/20 ML VIAL IV ONE ×2 (10:48→11:43)
--- NOTE | 2019-07-18 12:38 | Operative Report ---
Nonrecallable Operative Report DATE OF SURGERY: 07/18/19 PREOPERATIVE DIAGNOSIS: Chronic nausea POSTOPERATIVE DIAGNOSIS: Chronic nausea OPERATION: Esophagogastroduodenoscopy and colonoscopy SURGEON: VANE HUMPHRIES ANESTHESIA: LMAC TISSUE REMOVED OR ALTERED: None COMPLICATIONS: None ESTIMATED BLOOD LOSS: 0 INTRAOPERATIVE FINDINGS: See note PROCEDURE: Patient was brought to the operating room awake alert stable condition placed on the operative table supine position and given IV sedation with propofol. She was placed in a left lateral decubitus position and after appropriate timeout and site verification the procedure commenced. The Olympus gastroscope was passed into the posterior pharynx and easily traversed the upper esophageal sphincter is into the proximal esophagus. We intubated the lower esophageal sphincters and gained access to the gastric body. Evaluation of the gastric body revealed normal mucosa the body of the stomach was somewhat enlarged and with some irritation we were able to traverse the gastric body into the antrum and then identified the pylorus. The pylorus was open and patulous. However there was no bowel contents nor retained stomach contents. We intubated the pylorus and gained access to the first portion of the duodenum we were able to traverse the first portion into the second portion of the duodenum. There was no mucosal abnormalities no ulcerations. We slowly withdrew the scope examined the pylorus again there is no ulcerations in the prepylorus or the duodenal bulb. The scope was then retroflexed and we noted a moderate size hiatal hernia. As we slowly withdrew the scope again we examined the mucosa of the stomach it appeared to be normal scope was slowly withdrawn past the lower esophageal sphincters into the distal esophagus there was no significant varices or distal esophagitis. The scope was withdrawn. Attention was then turned to the opposite side of the patient for the colonoscopy. The Olympus colonoscope was passed into the into the rectum and we easily traversed the rectum into the sigmoid colon as we continue to advance the scope we noted a moderate amount of stool and the bowel prep was deemed poor. This required some suctioning and irrigation and we finally were able to traverse the descending colon to the splenic flexure identified the transverse colon hepatic flexure and we were able to manipulate the scope all the way to the cecum. There was thick tenacious stools adherent to the hameed of the cecum with some irrigation we were finally able to clear some of it but not completely. We did identify the ileocecal valve and slowly withdrew the scope past the ascending colon noted no evidence of any polyps from what we could see of the mucosa as it was a poor prep with large amount of irrigation were able to identify approximately 75% of the mucosa I did not identify any polyps or mucosal ab normalities there were no diverticulosis. We slowly withdrew the scope past the hepatic flexure through the transverse colon also noted to be normal except for moderate amount of retained stool. The scope was then slowly past the splenic flexure the descending colon was evaluated the sigmoid no evidence of any diverticulosis. We slowly withdrew the scope. Impression poor bowel prep for the colonoscopy however no obvious major abnormalities. Upper endoscopy mildly enlarged gastric corpus. Recommendations 1. We will obtain a gastric emptying study to try to find an etiology of her chronic nausea as she has had an extensive work-up thus far including multiple CT scans multiple ultrasounds MRI scan of the brain. All negative for any specific lesions. Her metabolic work-up is includes a slightly decreased TSH at 0.33. If the gastric emptying study is normal we will start her on symptomatic treatment for her nausea and she could be discharged home with follow-up with her primary physician.
[2019-07-18] MEDS: ONDANSETRON HCL INJ/PF 4 MG/2 ML SDV IV PRN (18:38)
[2019-07-19] MEDS: DEXTROSE 5%-LACTATED RINGERS 1,000 ML IV PRN ×2 (02:55→21:11)
[2019-07-19] MEDS: LEVOTHYROXINE SODIUM 0.05 MG TABLET PO SCH (05:16)
[2019-07-19] MEDS: FLUOXETINE HCL 20 MG/5 ML UDCUP PO SCH (13:12)
[2019-07-19] MEDS: METOPROLOL SUCCINATE 25 MG TAB.SR.24H PO SCH (13:13)
[2019-07-19] MEDS: PANTOPRAZOLE SODIUM 40 MG TABLET.DR PO SCH (13:13)
--- NOTE | 2019-07-19 13:23 | RADIOLOGY REPORT (SQ) ---
EXAM DESCRIPTION: NM GASTRIC EMPTYING STUDY IMAGES COMPLETED DATE/TIME: 07/19/2019 1:06 pm REASON FOR STUDY: chronic nausea R11.2 NAUSEA WITH VOMITING, UNSPECIFIED E03.8 OTHER SPECIFIED HYP OTHYROIDISM COMPARISON: None. RADIONUCLIDE AND DOSE: 2.14 millicuries Tc-99m Sulfur Colloid. Egg salad sandwich The route of agent administration: Oral. TECHNIQUE: 1 minute serial static imaging performed at time of meal, 1 hour, 2 hours, 3 hours, and 4 hours as needed. Once stomach reaches 90% emptying, the test is complete. Image intensity values pl otted with respect to time with linear regression algorithm. LIMITATIONS: None. FINDINGS: Patient was observed for 4 hours. Immediate post meal serves as baseline. Gastric emptying at 30 minutes was 22%. Gastric emptying at 60 minutes was 44% Gastric emptying at 90 minutes was 61%. Gastric emptying at 120 minutes was 73%. Gastric emptying at 240 minutes was 94%. Normal values: 60 minutes: 30-90% retained. If less than 30%, abnormally rapid emptying. If greater than 90%, delaye d gastric emptying. 120 minutes: <60% retained. If greater than 60%, delayed gastric emptying. 240 minutes: <10% retained. If greater than 10%, delayed gastric emptying. IMPRESSION: NORMAL GASTRIC EMPTYING. TECHNICAL DOCUMENTATION: JOB ID: [id number] 2010 [employer]- All Rights Reserved Reading location - IP/workstation name: [email or web address]
[2019-07-19] MEDS: ONDANSETRON HCL INJ/PF 4 MG/2 ML SDV IV PRN (14:24)
[2019-07-19] MEDS: ALPRAZOLAM 0.5 MG TABLET PO PRN ×2 (16:16→21:11)
[2019-07-20] MEDS: DEXTROSE 5%-LACTATED RINGERS 1,000 ML IV PRN (05:05)
[2019-07-20] MEDS: LEVOTHYROXINE SODIUM 0.025 MG TABLET PO SCH (05:43)
[2019-07-20] MEDS: ONDANSETRON HCL INJ/PF 4 MG/2 ML SDV IV PRN (07:22)
[2019-07-20 08:04] VITALS: BP 144/70
--- NOTE | 2019-07-20 08:41 | PDOC DISCHARGE SUMMARY ---
General - Admit/Disc Date/PCP Admission Date/Primary Care Provider: 07/18/19 13:29 BRUNO MENDEZ MD Discharge Date: 07/20/19 - Discharge Diagnosis Final Diagnosis: Chronic nausea - Assessment Summary: This is a 74-year-old female who was admitted 3 days ago from the surgical clinic with chronic nausea and epigastric abdominal pain with dry heaves. She was admitted for a work-up of her chronic nausea. She had an extensive work-up prior to being admitted with a number of CAT scans and ultrasound of her upper abdomen. The operative ultrasound of her upper abdomen showed a small 3 mm gallbladder polyp otherwise normal gallbladder. She also underwent a CT scan which was unremarkable. She was admitted for upper endoscopy which was normal. She also underwent a gastric emptying study which was normal. Her chronic nausea is being treated with Reglan and Zofran. At this point there is been no surgical etiology for her chronic nausea. Therefore at this point there is no reason to keep her in the hospital as she is tolerating clear liquids to full liquid diet and her nausea being treated with Zofran and Reglan. The etiology of her nausea still in question she will follow-up with her primary physician for further evaluation. She can follow-up in the surgery clinic as needed. - Additional Information Resuscitation Status: Full Code Discharge Diet: As Tolerated Discharge Activity: Activity As Tolerated Referrals: BRUNO MENDEZ MD [Primary Care Provider] - Prescriptions: Metoclopramide HCl [Reglan 10 mg Tablet] 1 - 2 tab PO Q6HP PRN #25 tablet PRN Reason: Home Medications: Levothyroxine Sodium [Synthroid 50 Mcg Tablet] 50 mcg PO Q2D 05/12/16 Promethazine HCl [Phenergan 25 mg Tablet] 1 tab PO Q6H PRN #15 tablet 07/10/19 Alprazolam [Xanax 0.5 mg Tablet] 0.5 mg PO BIDP PRN 07/15/19 Fluoxetine HCl 10 mg PO DAILY 07/15/19 Hormone Cream 1 applic TP DAILY 07/15/19 Levothyroxine Sodium [Synthroid 0.025 mg Tablet] 25 mcg PO Q2D 07/15/19 Metoprolol Succinate [Kapspargo Sprinkle] 25 mg PO DAILY 07/15/19 Omeprazole 40 mg PO DAILY 07/15/19 Ondansetron HCl 4 mg PO Q6HP PRN 07/15/19 Metoclopramide HCl [Reglan 10 mg Tablet] 1 - 2 tab PO Q6HP PRN #25 tablet 07/20/19 History of Present Illiness History of Present Illness: INDRA MITCHELL is a 74 year old female who presents with complaints of nausea and dry heaves patient came to the surgical office today for consult with Dr. Siobhan mulligan complaining of extreme nausea and vomiting however the vomiting is not productive and only dry heaves. Patient states that she has had excessive belching and bloating. Patient states that she has had an abdominal ultra [facility] on 07[facility]07[facility]2019 with findings of gallstones she states that she is unable to eat due to the nausea has not lost approximately 10 pounds in the last 10 days patient states that she has had constant nausea patient is scheduled for an EGD on 07/27/2019 She states she has had a loss of her appetite unable to have bowel movements and has not had a normal bowel movement in the last 7 to 10 days admitted to hospital today for further work-up. In addition to that she is underwent 2 CT scans of her abdomen pelvis over the last few days one at [facility] 2 days ago and went [place] here at the [facility] 6 days ago both studies were interpreted as normal she denies any history of ulcer disease she denies any history of cancer she is also seen at least 3 separate primary care physicians for these complaints she is very complains of being very anxious states that she has an anxiety disorder is on Prozac which was recently switched to Lexapro and then back to Prozac Physical Exam Vital Signs: Temp Pulse Resp BP Pulse Ox 98.3 F 58 L 16 144/70 H 99 07/20/19 08:00 07/20/19 08:00 07/20/19 08:00 07/20/19 08:00 07/20/19 08:00 Intake & Output 07/19/19 07/20/19 07/21/19 06:59 06:59 06:59 Intake Total 2700 3860 Output Total 100 1300 Balance 2600 2560 Weight 55.4 kg 54.5 kg Results Laboratory Results: WBC 4.2 10^3/uL (4.0-10.5) 07/16/19 16:03 RBC 4.11 10^6/uL (3.72-5.28) 07/16/19 16:03 Hgb 13.2 g/dL (12.0-15.5) 07/16/19 16:03 Hct 39.5 % (36.0-47.0) 07/16/19 16:03 MCV 96 fl (80-97) 07/16/19 16:03 MCH 32.2 pg (27.0-33.4) 07/16/19 16:03 MCHC 33.5 g/dL (32.0-36.0) 07/16/19 16:03 RDW 13.9 % (11.5-14.0) 07/16/19 16:03 Plt Count 163 10^3/uL (150-450) 07/16/19 16:03 Lymph % (Auto) 34.8 % (13-45) 07/16/19 16:03 Bland % (Auto) 11.9 % (3-13) 07/16/19 16:03 Eos % (Auto) 1.5 % (0-6) 07/16/19 16:03 Baso % (Auto) 0.6 % (0-2) 07/16/19 16:03 Absolute Neuts (auto) 2.1 10^3/uL (1.7-8.2) 07/16/19 16:03 Absolute Lymphs (auto) 1.5 10^3/uL (0.5-4.7) 07/16/19 16:03 Absolute Monos (auto) 0.5 10^3/uL (0.1-1.4) 07/16/19 16:03 Absolute Eos (auto) 0.1 10^3/uL (0.0-0.6) 07/16/19 16:03 Absolute Basos (auto) 0.0 10^3/uL (0.0-0.2) 07/16/19 16:03 Seg Neutrophils % 51.2 % (42-78) 07/16/19 16:03 Sodium 140.0 mmol/L (137-145) 07/15/19 14:37 Potassium 3.7 mmol/L (3.6-5.0) 07/15/19 14:37 Chloride 105 mmol/L (98-107) 07/15/19 14:37 Carbon Dioxide 28 mmol/L (22-30) 07/15/19 14:37 Anion Gap 7 (5-19) 07/15/19 14:37 BUN 6 mg/dL (7-20) L 07/15/19 14:37 Creatinine 0.73 mg/dL (0.52-1.25) 07/15/19 14:37 Est GFR ( Amer) > 60 (>60) 07/15/19 14:37 Est GFR (MDRD) Non-Af > 60 (>60) 07/15/19 14:37 Glucose 90 mg/dL (75-110) 07/15/19 14:37 Calcium 9.0 mg/dL (8.4-10.2) 07/15/19 14:37 Total Bilirubin 0.5 mg/dL (0.2-1.3) 07/15/19 14:37 Direct Bilirubin 0.0 mg/dL (0.0-0.4) 07/15/19 14:37 Neonat Total Bilirubin Not Reportable 07/15/19 14:37 Neonat Direct Bilirubin Not Reportable 07/15/19 14:37 Neonat Indirect Bili Not Reportable 07/15/19 14:37 AST 24 U/L (14-36) 07/15/19 14:37 ALT 12 U/L (<35) 07/15/19 14:37 Alkaline Phosphatase 53 U/L (38-126) 07/15/19 14:37 Total Protein 6.6 g/dL (6.3-8.2) 07/15/19 14:37 Albumin 3.8 g/dL (3.5-5.0) 07/15/19 14:37 Amylase 61 U/L (30-110) 07/15/19 14:37 Lipase 73.0 U/L (23-300) 07/15/19 14:37 Carcinoembryonic Ag 0.41 ng/mL (<3.0) 07/15/19 14:37 CA 19-9 Antigen 14 U/mL (0-35) 07/15/19 14:37 TSH 0.33 uIU/mL (0.47-4.68) L 07/16/19 16:03 Free T4 1.60 ng/dL (0.78-2.19) 07/16/19 16:03 Free T3 pg/mL 3.91 pg/mL (2.77-5.27) 07/16/19 16:03 SARS-CoV-2 (PCR) NEGATIVE (NEGATIVE) 07/17/19 18:20 Impressions: Abdomen Ultrasound 07/16/19 00:00 IMPRESSION: NORMAL RIGHT UPPER QUADRANT ULTRASOUND. Gastric Emptying Nuclear Medicine 07/18/19 00:00 IMPRESSION: NORMAL GASTRIC EMPTYING.
[2019-07-20] MEDS: FLUOXETINE HCL 20 MG/5 ML UDCUP PO SCH (09:14)
[2019-07-20] MEDS: PANTOPRAZOLE SODIUM 40 MG TABLET.DR PO SCH (09:14)
[2019-07-20] MEDS: METOPROLOL SUCCINATE 25 MG TAB.SR.24H PO SCH (09:16)
[2019-07-20] MEDS: ALPRAZOLAM 0.5 MG TABLET PO PRN (10:44)
== END 2019-07-20 11:12 | disposition home or self-care (01) | DRG 392 ==
LOC: 4N 13:05 → OBSVTOIN 07-18 13:29
PROVIDERS: ADMIT Surgery; ATTEND Surgery
PROC: 0DJ08ZZ Inspection of Upper Intestinal Tract, Via Natural or Artificial Opening Endoscopic (ICD-10-PCS; principal; 2019-07-18 11:00)
PROC: 0DJD8ZZ Inspection of Lower Intestinal Tract, Via Natural or Artificial Opening Endoscopic (ICD-10-PCS; 2019-07-18 11:00)
DX: R11.2 Nausea with vomiting, unspecified (principal); I10 Essential (primary) hypertension; K80.20 Calculus of gallbladder without cholecystitis without obstruction; K59.00 Constipation, unspecified; F41.8 Other specified anxiety disorders; Z79.899 Other long term (current) drug therapy; Z03.818 Encounter for observation for suspected exposure to other biological agents ruled out
CPT/HCPCS: 36415; 43235; 45378; 76705; 78264; 80053; 813; 82150; 82378; 83690; 84439; 84443; 84481; 85025; 86301; 87635; 99140; A9541; C9803; J2001; J2405; J2550; J2704; J3490; J7030; J7121

== ENCOUNTER 2019-07-31 16:11 | Observation (INO) | payer MEDICARE, OTHER ==
[2019-07-31] MEDS ORDERED: NORMAL SALINE 1000 ML 1,000 ML IV PRN (16:45)
--- NOTE | 2019-07-31 16:48 | ER Document Report ---
ED Dizziness/Weakness - General Chief Complaint: Weakness Stated Complaint: NAUSEA,WEAKNESS,SHORT OF BREATH Time Seen by Provider: 07/31/19 16:41 Primary Care Provider: QUIANA CHOWDHURY NP [Primary Care Provider] - Follow up as needed Information source: Patient TRAVEL OUTSIDE OF THE [place] IN LAST 30 DAYS: No - HPI Patient complains to provider of: Dizziness, Near-syncope, Weakness, Other - Epigastric discomfort nausea vomiting Onset: Other - This 74-year-old female who is had pretty much persistent nausea for the last several months she has been seen here and another facility she is got multiple abdominal CAT scans she was admitted here 2 weeks ago she has an outpatient HIDA scan scheduled for she presents today with weakness nausea vomiting also has little bit of chest discomfort at this point time - Related Data Allergies/Adverse Reactions: No Known Allergies Allergy (Verified 07/10/19 13:02) Past Medical History - General Information source: Patient - Social History Smoking Status: Never Smoker Cigarette use (# per day): No Chew tobacco use (# tins/day): No Smoking Education Provided: No Frequency of alcohol use: None Drug Abuse: None Family History: Reviewed & Not Pertinent - Past Medical History Cardiac Medical History: Reports: Hx Hypertension Denies: Hx Heart Attack Pulmonary Medical History: Denies: Hx Asthma Neurological Medical History: Denies: Hx Cerebrovascular Accident, Hx Seizures GI Medical History: Denies: Hx Hepatitis, Hx Hiatal Hernia, Hx Ulcer Psychiatric Medical History: Reports: Hx Depression Infectious Medical History: Denies: Hx Hepatitis Past Surgical History: Reports: Hx Hysterectomy. Denies: Hx Mastectomy, Hx Open Heart Surgery, Hx Pacemaker Review of Systems - Review of Systems Constitutional: No symptoms reported EENT: No symptoms reported Cardiovascular: No symptoms reported Respiratory: No symptoms reported Gastrointestinal: No symptoms reported Genitourinary: No symptoms reported Female Genitourinary: No symptoms reported Musculoskeletal: No symptoms reported Skin: No symptoms reported Hematologic/Lymphatic: No symptoms reported Neurological/Psychological: No symptoms reported Physical Exam - Vital signs Vitals: Temp Pulse Resp BP Pulse Ox 97.6 F 68 16 125/76 98 07/31/19 16:28 07/31/19 16:28 07/31/19 16:28 07/31/19 16:28 07/31/19 16:28 Interpretation: Normal - General General appearance: Appears well, Alert - HEENT Head: Normocephalic, Atraumatic Eyes: Normal Pupils: PERRL - Respiratory Respiratory status: No respiratory distress Chest status: Nontender Breath sounds: Normal Chest palpation: Normal - Cardiovascular Rhythm: Regular Heart sounds: Normal auscultation Murmur: No - Abdominal Inspection: Normal Distension: No distension Bowel sounds: Normal Tenderness: Nontender Organomegaly: No organomegaly - Back Back: Normal, Nontender - Extremities General upper extremity: Normal inspection, Nontender, Normal color, Normal ROM, Normal temperature General lower extremity: Normal inspection, Nontender, Normal color, Normal ROM, Normal temperature, Normal weight bearing. No: Ricki's sign - Neurological Neuro grossly intact: Yes Cognition: Normal Orientation: AAOx4 [place] Coma Scale Eye Opening: Spontaneous Luz Coma Scale Verbal: Oriented [place] Coma Scale Motor: Obeys Commands Luz Coma Scale Total: 15 Speech: Normal Motor strength normal: LUE, RUE, LLE, RLE Sensory: Normal - Psychological Associated symptoms: Normal affect, Normal mood - Skin Skin Temperature: Warm Skin Moisture: Dry Skin Color: Normal Course - Re-evaluation Re-evalutation: 07/31/19 17:58 This again is a 74-year-old female who presents today with epigastric discomfort. For the last several months is just had progressive nausea vomiting weakness and diarrhea. She has been tested for COVID and was negative she is been admitted to this facility as recently as 2 weeks ago she has had 2 CAT scans on her stomach she has nausea vomiting fatigue shortness of breath pain in the chest area increase in belching she is lost 40 pounds over the last 2 months she has an outpatient HIDA scan scheduled for the . She does have findings of: Hiatal Hernia 3 mm gallbladder polyps She has had gastric emptying studies performed which nondiagnostic 07/31/19 18:01 - Vital Signs Vital signs: Temp Pulse Resp BP Pulse Ox 97.6 F 68 12 125/76 98 07/31/19 17:28 07/31/19 16:28 07/31/19 17:24 07/31/19 16:28 07/31/19 17:24 - Laboratory Result Diagrams: 07/31/19 17:21 07/31/19 17:21 Laboratory results interpreted by me: 07/31/19 17:21 RDW 14.1 H Labs- All tests 24 hr 07/31/19 07/31/19 07/31/19 17:21 17:21 17:21 WBC 6.3 RBC 4.59 Hgb 15.2 Hct 44.3 MCV 96 MCH 33.1 MCHC 34.3 RDW 14.1 H Plt Count 271 Lymph % (Auto) 31.6 Adams % (Auto) 9.1 Eos % (Auto) 1.3 Baso % (Auto) 0.5 Absolute Neuts (auto) 3.6 Absolute Lymphs (auto) 2.0 Absolute Monos (auto) 0.6 Absolute Eos (auto) 0.1 Absolute Basos (auto) 0.0 Seg Neutrophils % 57.5 Sodium 137.5 Potassium 3.8 Chloride 102 Carbon Dioxide 27 Anion Gap 9 BUN 9 Creatinine 0.71 Est GFR ( Amer) > 60 Est GFR (MDRD) Non-Af > 60 Glucose 91 Calcium 10.0 Total Bilirubin 0.5 Direct Bilirubin 0.0 Neonat Total Bilirubin Not Reportable Neonat Direct Bilirubin Not Reportable Neonat Indirect Bili Not Reportable AST 25 ALT 13 Alkaline Phosphatase 69 Troponin I Cancelled Total Protein 7.7 Albumin 4.4 Lipase 96.3 Urine Color Urine Appearance Urine pH Ur Specific [place] Urine Protein Urine Glucose (UA) Urine Ketones Urine Blood Urine Nitrite Urine Bilirubin Urine Urobilinogen Ur Leukocyte Esterase Urine WBC (Auto) Urine RBC (Auto) U Hyaline Cast (Auto) Squamous Epi Cells Auto Urine Mucus (Auto) Urine Ascorbic Acid 07/31/19 07/31/19 17:21 19:40 WBC RBC Hgb Hct MCV MCH MCHC RDW Plt Count Lymph % (Auto) Adams % (Auto) Eos % (Auto) Baso % (Auto) Absolute Neuts (auto) Absolute Lymphs (auto) Absolute Monos (auto) Absolute Eos (auto) Absolute Basos (auto) Seg Neutrophils % Sodium Potassium Chloride Carbon Dioxide Anion Gap BUN Creatinine Est GFR ( Amer) Est GFR (MDRD) Non-Af Glucose Calcium Total Bilirubin Direct Bilirubin Neonat Total Bilirubin Neonat Direct Bilirubin Neonat Indirect Bili AST ALT Alkaline Phosphatase Troponin I < 0.012 Total Protein Albumin Lipase Urine Color YELLOW Urine Appearance CLEAR Urine pH 9.0 Ur Specific [place] 1.008 Urine Protein NEGATIVE Urine Glucose (UA) NEGATIVE Urine Ketones NEGATIVE Urine Blood NEGATIVE Urine Nitrite NEGATIVE Urine Bilirubin NEGATIVE Urine Urobilinogen NEGATIVE Ur Leukocyte Esterase NEGATIVE Urine WBC (Auto) 3 Urine RBC (Auto) 0 U Hyaline Cast (Auto) 1 Squamous Epi Cells Auto 1 Urine Mucus (Auto) OCC Urine Ascorbic Acid NEGATIVE - Diagnostic Test Radiology results interpreted by me: 07/31/19 20:46 Acute Abdomen Series 07/31/19 16:45 IMPRESSION: NONSPECIFIC BOWEL GAS PATTERN WITHOUT EVIDENCE FOR OBSTRUCTION. Discharge - Discharge Clinical Impression: Chest pain Disposition: ADMITTED OBSERVATION Admitting Provider: Se (Hospitalist) Unit Admitted: Telemetry Referrals: QUIANA CHOWDHURY NP [Primary Care Provider] - Follow up as needed
[2019-07-31 17:51] LABS: ABSOLUTE EOSINOPHILS # (AUTO) 0.1 10^3/uL (0.0-0.6); ABSOLUTE MONOCYTES (AUTO) 0.6 10^3/uL (0.1-1.4); ABSOLUTE NEUT (AUTO) 3.6 10^3/uL (1.7-8.2); BASOPHILS % (AUTO) 0.5 % (0-2); EOSINOPHILS % (AUTO) 1.3 % (0-6); HEMATOCRIT 44.3 % (36.0-47.0); HEMOGLOBIN 15.2 g/dL (12.0-15.5); LYMPHOCYTES % (AUTO) 31.6 % (13-45); MEAN CORPUSCULAR HEMOGLOBIN 33.1 pg (27.0-33.4); MEAN CORPUSCULAR HGB CONC 34.3 g/dL (32.0-36.0); MEAN CORPUSCULAR VOLUME 96 fl (80-97); MONOCYTES % (AUTO) 9.1 % (3-13); PLATELET COUNT 271 10^3/uL (150-450); RED BLOOD COUNT 4.59 10^6/uL (3.72-5.28); RED CELL DISTRIBUTION WIDTH 14.1 % (11.5-14.0); SEGMENTED NEUTROPHILS % (AUTO) 57.5 % (42-78); TOTAL CELLS COUNTED % (AUTO) 100 %; WHITE BLOOD COUNT 6.3 10^3/uL (4.0-10.5)
[2019-07-31 18:01] LABS: APPEARANCE,URINE CLEAR; BILIRUBIN,URINE NEGATIVE (NEGATIVE); COLOR,URINE YELLOW; GLUCOSE, URINE NEGATIVE (NEGATIVE); KETONES,URINE NEGATIVE (NEGATIVE); LEUKOCYTE ESTERASE,URINE NEGATIVE (NEGATIVE); NITRITE,URINE NEGATIVE (NEGATIVE); PROTEIN,URINE NEGATIVE (NEGATIVE); URINE SPECIFIC GRAVITY 1.008; UROBILINOGEN,URINE NEGATIVE mg/dL (<2.0)
--- NOTE | 2019-07-31 18:01 | RADIOLOGY REPORT (SQ) ---
EXAM DESCRIPTION: ACUTE ABDOMEN SERIES IMAGES COMPLETED DATE/TIME: 07/31/2019 5:49 pm REASON FOR STUDY: pain COMPARISON: None. NUMBER OF VIEWS: Three views. TECHNIQUE: PA chest, supine abdomen and upright/decubitus abdomen radiographic images acquired. LIMITATIONS: None. FINDINGS: CHEST: Lungs clear of infiltrates. FREE AIR: None. No abnormal gas collections. BOWEL GAS PATTERN: Few scattered small bowel loops with air fluid levels. No distended large or small bowel loops. CALCIFICATIONS: No suspicious calcifications. HARDWARE: None in the abdomen. SOFT TISSUES: No gross mass or suggestion of organomegaly. BONES: No acute fracture. No worrisome bone lesions. OTHER: No other significant finding. IMPRESSION: NONSPECIFIC BOWEL GAS PATTERN WITHOUT EVIDENCE FOR OBSTRUCTION. TECHNICAL DOCUMENTATION: JOB ID: [id number] [id number] 2010 [employer]- All Rights Reserved Reading location - IP/workstation name: [email or web address]
[2019-07-31 18:07] LABS: ALBUMIN 4.4 g/dL (3.5-5.0); ALKALINE PHOSPHATASE 69 U/L (38-126); ANION GAP 9 (5-19); ASPARTATE AMINO TRANSFERASE 25 U/L (14-36); BILIRUBIN,TOTAL 0.5 mg/dL (0.2-1.3); BLOOD UREA NITROGEN 9 mg/dL (7-20); CARBON DIOXIDE 27 mmol/L (22-30); CHLORIDE 102 mmol/L (98-107); GLUCOSE 91 mg/dL (75-110); POTASSIUM 3.8 mmol/L (3.6-5.0); TOTAL PROTEIN 7.7 g/dL (6.3-8.2)
[2019-07-31] MEDS ORDERED: ALPRAZOLAM 0.5 MG TABLET PO ONE (20:58)
[2019-07-31] MEDS ORDERED: ACETAMINOPHEN 325 MG TABLET PO PRN (21:17)
[2019-07-31] MEDS ORDERED: NITROGLYCERIN 0.4 MG/TAB 25 TAB/BOTTLE SL PRN (21:17)
[2019-07-31] MEDS: FAMOTIDINE INJ/PF 20 MG/2 ML SDV IV SCH (21:58)
[2019-07-31] MEDS ORDERED: ASPIRIN 81 MG TABLET, CHEWABLE PO ONE (22:00)
[2019-07-31] MEDS ORDERED: ATORVASTATIN CALCIUM 40 MG TABLET PO SCH (22:00)
[2019-07-31] MEDS ORDERED: OLANZAPINE 5 MG TABLET PO ONE (22:00)
--- NOTE | 2019-07-31 22:42 | EKG REPORT ---
SEVERITY:- NORMAL ECG - SINUS RHYTHM : Confirmed by: Keena Smith MD 31-Jul-2019 22:41:30
[2019-08-01 00:18] VITALS: BP 143/80
[2019-08-01] MEDS ORDERED: ALPRAZOLAM 0.5 MG TABLET PO PRN (04:32)
--- NOTE | 2019-08-01 05:23 | PDOC H&P ---
History of Present Illness Admission Date/PCP: 07/31/19 21:07 QUIANA CHOWDHURY NP Patient complains of: Abdominal and chest pain History of Present Illness: INDRA MITCHELL is a 74 year old female with a past medical history of anxiety disorder, hiatal hernia and intractable GI symptoms. She presents with at least 2 months of intolerable abdominal pain, nausea without vomiting and decompensated anxiety disorder. In the emergency department she has an unremarkable work-up and is referred to the hospitalist for observation of atypical chest pain. Aching nonradiating 3 out of 5 chest and abdominal pain, without much consideration she answers affirmatively to shortness of breath, palpitations, nausea and vomiting, and worsening with exertion. She is unable to identify alleviating or exacerbating factors. She had a negative cardiac catheterization 7 years ago but nothing recently. She has within the last 30 days undergone extensive work-up of GI complaints at [facility]. She admittedly states she intends to go to [facility] for evaluation if nothing new is found. Her work-up includes abdominal CT x2, EGD, multiple repeated labs, colonoscopy, gastric emptying study, without findings beyond hiatal hernia. She admits recent change of medication regiment including thyroxine dose adjustment and failed Lexapro substitution for Prozac. She denies excessive caffeine, energy drinks, diet supplements or [id number] er medications. Past Medical History Cardiac Medical History: Reports: Hypertension Denies: Myocardial Infarction Pulmonary Medical History: Denies: Asthma Neurological Medical History: Denies: Seizures GI Medical History: Denies: Hepatitis, Hiatal Hernia Psychiatric Medical History: Reports: Depression, General Anxiety Disorder Denies: Substance Abuse, Tobacco Dependency Hematology: Denies: Anemia, Sickle Cell Disease Past Surgical History Past Surgical History: Reports: Hysterectomy Denies: Amputation, Mastectomy, Pacemaker Social History Information Source: Patient, [facility] Records Lives with: Spouse/Significant other Smoking Status: Never Smoker Frequency of Alcohol Use: None Hx Recreational Drug Use: No Drugs: None Hx Prescription Drug Abuse: No - Advance Directive Resuscitation Status: Full Code Family History Family History: CAD, Hypertension Parental Family History Reviewed: Yes Children Family History Reviewed: Yes Sibling(s) Family History Reviewed.: Yes Medication/Allergy Home Medications: Levothyroxine Sodium [Synthroid 50 Mcg Tablet] 25 mcg PO Q2D 05/12/16 Promethazine HCl [Phenergan 25 mg Tablet] 1 tab PO Q6H PRN #15 tablet 07/10/19 Alprazolam [Xanax 0.5 mg Tablet] 0.5 mg PO BIDP PRN 07/15/19 Fluoxetine HCl 10 mg PO DAILY 07/15/19 Hormone Cream 1 applic TP DAILY 07/15/19 Levothyroxine Sodium [Synthroid 0.025 mg Tablet] 25 mcg PO Q2D 07/15/19 Metoprolol Succinate [Kapspargo Sprinkle] 25 mg PO DAILY 07/15/19 Omeprazole 40 mg PO DAILY 07/15/19 Ondansetron HCl 4 mg PO Q6HP PRN 07/15/19 Metoclopramide HCl [Reglan 10 mg Tablet] 1 - 2 tab PO Q6HP PRN #25 tablet 07/20/19 Allergies/Adverse Reactions: No Known Allergies Allergy (Verified 07/10/19 13:02) Review of Systems Constitutional: PRESENT: as per HPI, anorexia, weight loss. ABSENT: chills, fatigue, fever(s), headache(s), night sweats, weakness, weight gain Eyes: ABSENT: visual disturbances Ears: ABSENT: hearing changes Cardiovascular: PRESENT: as per HPI, chest pain. ABSENT: dyspnea on exertion, edema, orthropnea, palpitations Respiratory: ABSENT: cough, hemoptysis Gastrointestinal: PRESENT: as per HPI, abdominal pain, bloating, heartburn, nausea. ABSENT: coffee ground emesis, constipation, diarrhea, hematemesis, hematochezia, vomiting Genitourinary: ABSENT: dysuria, hematuria Musculoskeletal: ABSENT: joint swelling Integumentary: ABSENT: rash, wounds Neurological: ABSENT: abnormal gait, abnormal speech, confusion, dizziness, focal weakness, syncope Psychiatric: ABSENT: anxiety, depression, homidical ideation, suicidal ideation Endocrine: ABSENT: cold intolerance, heat intolerance, polydipsia, polyuria Hematologic/Lymphatic: ABSENT: easy bleeding, easy bruising Physical Exam Vital Signs: Temp Pulse Resp BP Pulse Ox 97.7 F 59 L 18 143/80 H 96 07/31/19 22:41 08/01/19 02:00 07/31/19 22:41 07/31/19 22:41 07/31/19 22:41 Intake & Output 07/30/19 07/31/19 08/01/19 11:59 11:59 11:59 Intake Total 0 Balance 0 Weight 56.5 kg Results Laboratory Results: 07/31/19 17:21 07/31/19 17:21 07/31/19 07/31/19 07/31/19 17:21 17:21 17:21 WBC 6.3 RBC 4.59 Hgb 15.2 Hct 44.3 MCV 96 MCH 33.1 MCHC 34.3 RDW 14.1 H Plt Count 271 Seg Neutrophils % 57.5 Sodium 137.5 Potassium 3.8 Chloride 102 Carbon Dioxide 27 Anion Gap 9 BUN 9 Creatinine 0.71 Est GFR ( Amer) > 60 Glucose 91 Calcium 10.0 Total Bilirubin 0.5 AST 25 Alkaline Phosphatase 69 Total Protein 7.7 Albumin 4.4 Lipase 96.3 TSH Urine Color YELLOW Urine Appearance CLEAR Urine pH 9.0 Ur Specific [place] 1.008 Urine Protein NEGATIVE Urine Glucose (UA) NEGATIVE Urine Ketones NEGATIVE Urine Blood NEGATIVE Urine Nitrite NEGATIVE Ur Leukocyte Esterase NEGATIVE Urine WBC (Auto) 3 Urine RBC (Auto) 0 07/31/19 17:21 WBC RBC Hgb Hct MCV MCH MCHC RDW Plt Count Seg Neutrophils % Sodium Potassium Chloride Carbon Dioxide Anion Gap BUN Creatinine Est GFR ( Amer) Glucose Calcium Total Bilirubin AST Alkaline Phosphatase Total Protein Albumin Lipase TSH 0.71 Urine Color Urine Appearance Urine pH Ur Specific [place] Urine Protein Urine Glucose (UA) Urine Ketones Urine Blood Urine Nitrite Ur Leukocyte Esterase Urine WBC (Auto) Urine RBC (Auto) 07/31/19 07/31/19 08/01/19 17:21 19:40 01:35 Troponin I Cancelled < 0.012 < 0.012 Impressions: Acute Abdomen Series 07/31/19 16:45 IMPRESSION: NONSPECIFIC BOWEL GAS PATTERN WITHOUT EVIDENCE FOR OBSTRUCTION. Assessment and Plan - Diagnosis (1) Chest pain, atypical Is this a current diagnosis for this admission?: Yes Plan: Atypical chest pain though the patient's pain is atypical there are multiple risk factors for coronary artery disease and subsequently will observe and evaluation of acute coronary syndrome versus coronary artery disease with stevie borjas. Cardiac monitoring blood pressure Q6 hours ,TSH, lipid profile, serial cardiac enzymes and cardiac stress test (2) Hiatal hernia Is this a current diagnosis for this admission?: Yes Plan: Proton pump inhibitor and education (3) Anxiety Is this a current diagnosis for this admission?: Yes Plan: Evaluate TSH, continue outpatient benzodiazepine prescription, trial trazodone, strongly consider mental health consult. (4) Hypothyroid Is this a current diagnosis for this admission?: Yes Plan: Possible iatrogenic hyperthyroidism. Follow-up TSH for suppression. - Time Time Spent with patient: 25-34 minutes - Inpatient Certification Medical Necessity: Need Close Monitoring Due to Risk of Patient Decompensation
[2019-08-01] MEDS: TRAZODONE HCL 50 MG TABLET PO SCH ×2 (09:18→09:38)
[2019-08-01] MEDS: FAMOTIDINE INJ/PF 20 MG/2 ML SDV IV SCH (09:19)
[2019-08-01] MEDS ORDERED: ASPIRIN 81 MG TABLET, ENT COATED PO SCH (10:00)
[2019-08-01] MEDS ORDERED: BUSPIRONE HCL 10 MG TABLET PO SCH (10:00)
[2019-08-01] MEDS ORDERED: FLUOXETINE HCL 20 MG/5 ML UDCUP PO SCH (10:00)
[2019-08-01] MEDS ORDERED: METOPROLOL SUCCINATE 25 MG TAB.SR.24H PO SCH (10:00)
[2019-08-01] MEDS ORDERED: FAMOTIDINE INJ/PF 20 MG/2 ML SDV IV SCH ×2 (10:00→22:00)
[2019-08-01] MEDS ORDERED: ONDANSETRON HCL INJ/PF 4 MG/2 ML SDV IV PRN (10:58)
[2019-08-01] MEDS ORDERED: METOCLOPRAMIDE HCL 10 MG TABLET PO SCH (12:00)
--- NOTE | 2019-08-01 14:23 | PDOC CONSULTATION ---
Consultation Consult Date: 08/01/19 Provider Consulted: VIRGINIA MANSFIELD Consult reason:: Chest pain History of Present Illness Admission Date/PCP: 07/31/19 21:07 QUIANA CHOWDHURY NP Patient complains of: Chest pain History of Present Illness: INDRA MITCHELL is a 74 year old female With the following active problems 1. Hypothyroidism 2. Anxiety disorder Patient has had recent evaluations at other hospitals for abdominal pain, epigastric pain. The overnight physician had wanted to proceed with a stress test but this could not be ordered in the appropriate fashion. Patient reports what is clearly atypical chest pain with predominantly epigastric discomfort without any significant radiation. This has been an intermittent symptom in the last few weeks. Patient does not report any associated symptoms or exacerbating factors or precipitating factors. Patient herself reports no prior mention of coronary artery disease or stents. There is no strong family history of coronary artery disease reported to me. Patient does not smoke cigarettes or use alcohol. P patient reports hysterectomy Past Medical History Cardiac Medical History: Reports: Hypertension Denies: Myocardial Infarction Pulmonary Medical History: Denies: Asthma Neurological Medical History: Denies: Seizures GI Medical History: Denies: Hepatitis, Hiatal Hernia Psychiatric Medical History: Reports: Depression, General Anxiety Disorder Denies: Substance Abuse, Tobacco Dependency Hematology: Denies: Anemia, Sickle Cell Disease Past Surgical History Past Surgical History: Reports: Hysterectomy Denies: Amputation, Mastectomy, Pacemaker Social History Lives with: Spouse/Significant other Smoking Status: Never Smoker Frequency of Alcohol Use: None Hx Recreational Drug Use: No Drugs: None Hx Prescription Drug Abuse: No - Advance Directive Resuscitation Status: Full Code Family History Family History: CAD, Hypertension Parental Family History Reviewed: Yes - No familial illnesses Children Family History Reviewed: NA Sibling(s) Family History Reviewed.: NA Medication/Allergy Home Medications: Levothyroxine Sodium [Synthroid 0.05 mg Tablet] 25 mcg PO DAILY 05/12/16 Promethazine HCl [Phenergan 25 mg Tablet] 1 tab PO Q6H PRN #15 tablet 07/10/19 Alprazolam [Xanax 0.5 mg Tablet] 0.5 mg PO BIDP PRN 07/15/19 Fluoxetine HCl 10 mg PO DAILY 07/15/19 Metoprolol Succinate [[place] Sprinkle] 25 mg PO DAILY 07/15/19 Omeprazole 40 mg PO QAM 07/15/19 Ondansetron HCl 4 mg PO Q6HP PRN 07/15/19 Metoclopramide HCl [Reglan 10 mg Tablet] 1 - 2 tab PO Q6HP PRN #25 tablet 07/20/19 Acetaminophen [Tylenol 325 mg Tablet] 650 mg PO Q4HP PRN tablet 08/01/19 Aspirin [Ecotrin 81 mg EC Tablet] 81 mg PO DAILY tabec 08/01/19 Atorvastatin Calcium [Lipitor 40 mg Tablet] 40 mg PO QHS #30 tablet 08/01/19 [id number] 2 pump TP DAILY 08/01/19 Allergies/Adverse Reactions: No Known Allergies Allergy (Verified 07/10/19 13:02) Review of Systems Constitutional: PRESENT: as per HPI Cardiovascular: PRESENT: chest pain Gastrointestinal: PRESENT: other - Symptoms suggest dyspepsia Physical Exam Vital Signs: Temp Pulse Resp BP Pulse Ox 97.7 F 75 18 143/80 H 96 07/31/19 22:41 08/01/19 07:00 07/31/19 22:41 07/31/19 22:41 07/31/19 22:41 Intake & Output 07/31/19 08/01/19 08/02/19 06:59 06:59 06:59 Intake Total 0 360 Output Total 650 Balance 0 -290 Weight 56.5 kg General appearance: PRESENT: no acute distress, cooperative Head exam: PRESENT: atraumatic, normocephalic Eye exam: PRESENT: conjunctiva pink, EOMI Mouth exam: PRESENT: moist Respiratory exam: PRESENT: clear to auscultation sagar, symmetrical, unlabored Cardiovascular exam: PRESENT: RRR, +S1, +S2 Pulses: PRESENT: normal radial pulses GI/Abdominal exam: PRESENT: soft Rectal exam: PRESENT: deferred Neurological exam: PRESENT: alert, awake, oriented to person, oriented to place, oriented to time Psychiatric exam: PRESENT: appropriate affect Skin exam: PRESENT: dry, intact Results Laboratory Results: 07/31/19 17:21 07/31/19 17:21 07/31/19 07/31/19 07/31/19 17:21 17:21 17:21 WBC 6.3 RBC 4.59 Hgb 15.2 Hct 44.3 MCV 96 MCH 33.1 MCHC 34.3 RDW 14.1 H Plt Count 271 Seg Neutrophils % 57.5 Sodium 137.5 Potassium 3.8 Chloride 102 Carbon Dioxide 27 Anion Gap 9 BUN 9 Creatinine 0.71 Est GFR ( Amer) > 60 Glucose 91 Calcium 10.0 Total Bilirubin 0.5 AST 25 Alkaline Phosphatase 69 Total Protein 7.7 Albumin 4.4 Lipase 96.3 TSH Urine Color YELLOW Urine Appearance CLEAR Urine pH 9.0 Ur Specific [place] 1.008 Urine Protein NEGATIVE Urine Glucose (UA) NEGATIVE Urine Ketones NEGATIVE Urine Blood NEGATIVE Urine Nitrite NEGATIVE Ur Leukocyte Esterase NEGATIVE Urine WBC (Auto) 3 Urine RBC (Auto) 0 07/31/19 17:21 WBC RBC Hgb Hct MCV MCH MCHC RDW Plt Count Seg Neutrophils % Sodium Potassium Chloride Carbon Dioxide Anion Gap BUN Creatinine Est GFR ( Amer) Glucose Calcium Total Bilirubin AST Alkaline Phosphatase Total Protein Albumin Lipase TSH 0.71 Urine Color Urine Appearance Urine pH Ur Specific [place] Urine Protein Urine Glucose (UA) Urine Ketones Urine Blood Urine Nitrite Ur Leukocyte Esterase Urine WBC (Auto) Urine RBC (Auto) 07/31/19 07/31/19 08/01/19 17:21 19:40 01:35 Troponin I Cancelled < 0.012 < 0.012 08/01/19 07:43 Troponin I < 0.012 EKG Comments: Twelve-lead EKG 07/31/2019. Independently reviewed by me. Sinus rhythm, 61 bpm, normal AV conduction, QTC is 435 ms Cardiac troponin negative x3 Impressions: Acute Abdomen Series 07/31/19 16:45 IMPRESSION: NONSPECIFIC BOWEL GAS PATTERN WITHOUT EVIDENCE FOR OBSTRUCTION. Assessment & Plan - Notes Notes: Patient with report of chest pain. Twelve-lead EKG is not diagnostic for myocardial ischemia Paucity of risk factors for coronary artery disease other than age. Cardiac biomarkers have been negative here as well. We will proceed with outpatient nuclear stress test. I discussed this with the patient. She is agreeable. We will arrange for this as an outpatient.
--- NOTE | 2019-08-01 14:24 | PDOC DISCHARGE SUMMARY ---
Impression - Admit/DC Date/PCP Admission Date/Primary Care Provider: 07/31/19 21:07 QUIANA CHOWDHURY NP Discharge Date: 08/01/19 - Discharge Diagnosis (1) Anxiety Is this a current diagnosis for this admission?: Yes (2) Chest pain, atypical Is this a current diagnosis for this admission?: Yes (3) Hiatal hernia Is this a current diagnosis for this admission?: Yes (4) Hypothyroid Is this a current diagnosis for this admission?: Yes - Additional Information Resuscitation Status: Full Code Discharge Diet: As Tolerated, Regular, Cardiac Discharge Activity: Activity As Tolerated, Balance Activity w/Rest Referrals: QUIANA CHOWDHURY NP [Primary Care Provider] - (Follow up within 1 week.) VIRGINIA MANSFIELD MD [ACTIVE STAFF] - (Follow up at earliest available appointment.) Prescriptions: Atorvastatin Calcium [Lipitor 40 mg Tablet] 40 mg PO QHS #30 tablet Home Medications: Levothyroxine Sodium [Synthroid 0.05 mg Tablet] 25 mcg PO DAILY 05/12/16 Promethazine HCl [Phenergan 25 mg Tablet] 1 tab PO Q6H PRN #15 tablet 07/10/19 Alprazolam [Xanax 0.5 mg Tablet] 0.5 mg PO BIDP PRN 07/15/19 Fluoxetine HCl 10 mg PO DAILY 07/15/19 Metoprolol Succinate [[place]sp[place] Sprinkle] 25 mg PO DAILY 07/15/19 Omeprazole 40 mg PO QAM 07/15/19 Ondansetron HCl 4 mg PO Q6HP PRN 07/15/19 Metoclopramide HCl [Reglan 10 mg Tablet] 1 - 2 tab PO Q6HP PRN #25 tablet 07/20/19 Acetaminophen [Tylenol 325 mg Tablet] 650 mg PO Q4HP PRN tablet 08/01/19 Aspirin [Ecotrin 81 mg EC Tablet] 81 mg PO DAILY tabec 08/01/19 Atorvastatin Calcium [Lipitor 40 mg Tablet] 40 mg PO QHS #30 tablet 08/01/19 [id number] 2 pump TP DAILY 08/01/19 History of Present Illiness History of Present Illness: Per H&P by Dr. Saez: INDRA MITCHELL is a 74 year old female with a past medical history of anxiety disorder, hiatal hernia and intractable GI symptoms. She presents with at least 2 months of intolerable abdominal pain, nausea without vomiting and decompensated anxiety disorder. In the emergency department she has an unremarkable work-up and is referred to the hospitalist for observation of atypical chest pain. Aching nonradiating 3 out of 5 chest and abdominal pain, without much consideration she answers affirmatively to shortness of breath, palpitations, nausea and vomiting, and worsening with exertion. She is unable to identify alleviating or exacerbating factors. She had a negative cardiac catheterization 7 years ago but nothing recently. She has within the last 30 days undergone extensive work-up of GI complaints at [facility]. She admittedly states she intends to go to [facility] for evaluation if nothing new is found. Her work-up includes abdominal CT x2, EGD, multiple repeated labs, colonoscopy, gastric emptying study, without findings beyond hiatal hernia. She admits recent change of medication regiment including thyroxine dose adjustment and failed Lexapro substitution for Prozac. She denies excessive caffeine, energy drinks, diet supplements or [id number]-[id number] medications. Hospital Course Hospital Course: Patient was admitted to the medical floor on continuous telemetry. She remained in NSR overnight without acute EKG changes. Serial troponins remained negative. Patient reports her discomfort is much improved; primarily complains of epigastric/abdominal discomfort that is worsened by p.o. intake. Unfortunately, Nuclear stress test was delayed until tomorrow. Patient requests to be discharged to home. She was agreeable to waiting until Cardiology consultation could be obtained to arrange for outpatient stress testing. Dr. Mansfield was able to meet with the patient this morning; agrees with plan to d/c with outpatient cardiology follow up. Patient is discharged to home in stable condition. She is advised to follow up with her primary care provider within 1 week. Keep scheduled appointment for EUFEMIA plan. Follow up with Dr. Mansfield for outpatient stress testing at the earliest available appointment. Take medications as prescribed. Return to the emergency department as needed for concerning symptoms. Physical Exam Vital Signs: Temp Pulse Resp BP Pulse Ox 97.7 F 75 18 143/80 H 96 07/31/19 22:41 08/01/19 07:00 07/31/19 22:41 07/31/19 22:41 07/31/19 22:41 Intake & Output 07/31/19 08/01/19 08/02/19 06:59 06:59 06:59 Intake Total 0 360 Output Total 650 Balance 0 -290 Weight 56.5 kg General appearance: PRESENT: no acute distress, cooperative, well-developed, well-nourished Head exam: PRESENT: atraumatic, normocephalic Eye exam: PRESENT: conjunctiva pink, EOMI, PERRLA. ABSENT: scleral icterus Mouth exam: PRESENT: moist, tongue midline Respiratory exam: PRESENT: clear to auscultation sagar, symmetrical, unlabored. ABSENT: rales, rhonchi, wheezes Cardiovascular exam: PRESENT: RRR. ABSENT: diastolic murmur, rubs, systolic murmur Vascular exam: PRESENT: normal capillary refill Rectal exam: PRESENT: deferred Extremities exam: PRESENT: full ROM. ABSENT: calf tenderness, clubbing, pedal edema Musculoskeletal exam: PRESENT: ambulatory Neurological exam: PRESENT: alert, awake, oriented to person, oriented to place, oriented to time, oriented to situation, CN II-XII grossly intact. ABSENT: motor sensory deficit Psychiatric exam: PRESENT: anxious, normal mood. ABSENT: homicidal ideation, suicidal ideation Skin exam: PRESENT: dry, intact, warm. ABSENT: cyanosis, rash Results Laboratory Results: WBC 6.3 10^3/uL (4.0-10.5) 07/31/19 17:21 RBC 4.59 10^6/uL (3.72-5.28) 07/31/19 17:21 Hgb 15.2 g/dL (12.0-15.5) 07/31/19 17:21 Hct 44.3 % (36.0-47.0) 07/31/19 17:21 MCV 96 fl (80-97) 07/31/19 17:21 MCH 33.1 pg (27.0-33.4) 07/31/19 17:21 MCHC 34.3 g/dL (32.0-36.0) 07/31/19 17:21 RDW 14.1 % (11.5-14.0) H 07/31/19 17:21 Plt Count 271 10^3/uL (150-450) 07/31/19 17:21 Lymph % (Auto) 31.6 % (13-45) 07/31/19 17:21 [place] % (Auto) 9.1 % (3-13) 07/31/19 17:21 Eos % (Auto) 1.3 % (0-6) 07/31/19 17:21 Baso % (Auto) 0.5 % (0-2) 07/31/19 17:21 Absolute Neuts (auto) 3.6 10^3/uL (1.7-8.2) 07/31/19 17:21 Absolute Lymphs (auto) 2.0 10^3/uL (0.5-4.7) 07/31/19 17:21 Absolute Monos (auto) 0.6 10^3/uL (0.1-1.4) 07/31/19 17:21 Absolute Eos (auto) 0.1 10^3/uL (0.0-0.6) 07/31/19 17:21 Absolute Basos (auto) 0.0 10^3/uL (0.0-0.2) 07/31/19 17: Seg Neutrophils % 57.5 % (42-78) 07/31/19 17:21 Sodium 137.5 mmol/L (137-145) 07/31/19 17:21 Potassium 3.8 mmol/L (3.6-5.0) 07/31/19 17:21 Chloride 102 mmol/L (98-107) 07/31/19 17:21 Carbon Dioxide 27 mmol/L (22-30) 07/31/19 17:21 Anion Gap 9 (5-19) 07/31/19 17:21 BUN 9 mg/dL (7-20) 07/31/19 17:21 Creatinine 0.71 mg/dL (0.52-1.25) 07/31/19 17:21 Est GFR ( Amer) > 60 (>60) 07/31/19 17:21 Est GFR (MDRD) Non-Af > 60 (>60) 07/31/19 17:21 Glucose 91 mg/dL (75-110) 07/31/19 17:21 Calcium 10.0 mg/dL (8.4-10.2) 07/31/19 17:21 Total Bilirubin 0.5 mg/dL (0.2-1.3) 07/31/19 17:21 Direct Bilirubin 0.0 mg/dL (0.0-0.4) 07/31/19 17:21 Neonat Total Bilirubin Not Reportable 07/31/19 17:21 Neonat Direct Bilirubin Not Reportable 07/31/19 17:21 Neonat Indirect Bili Not Reportable 07/31/19 17:21 AST 25 U/L (14-36) 07/31/19 17:21 ALT 13 U/L (<35) 07/31/19 17:21 Alkaline Phosphatase 69 U/L (38-126) 07/31/19 17:21 Troponin I < 0.012 ng/mL 08/01/19 07:43 Total Protein 7.7 g/dL (6.3-8.2) 07/31/19 17:21 Albumin 4.4 g/dL (3.5-5.0) 07/31/19 17:21 Lipase 96.3 U/L (23-300) 07/31/19 17:21 TSH 0.71 uIU/mL (0.47-4.68) 07/31/19 17:21 Urine Color YELLOW 07/31/19 17:21 Urine Appearance CLEAR 07/31/19 17:21 Urine pH 9.0 (5.0-9.0) 07/31/19 17:21 Ur Specific [place] 1.008 07/31/19 17:21 Urine Protein NEGATIVE mg/dL (NEGATIVE) 07/31/19 17:21 Urine Glucose (UA) NEGATIVE mg/dL (NEGATIVE) 07/31/19 17:21 Urine Ketones NEGATIVE mg/dL (NEGATIVE) 07/31/19 17:21 Urine Blood NEGATIVE (NEGATIVE) 07/31/19 17:21 Urine Nitrite NEGATIVE (NEGATIVE) 07/31/19 17:21 Urine Bilirubin NEGATIVE (NEGATIVE) 07/31/19 17:21 Urine Urobilinogen NEGATIVE mg/dL (<2.0) 07/31/19 17:21 Ur Leukocyte Esterase NEGATIVE (NEGATIVE) 07/31/19 17:21 Urine WBC (Auto) 3 /HPF 07/31/19 17:21 Urine RBC (Auto) 0 /HPF 07/31/19 17:21 U Hyaline Cast (Auto) 1 /LPF 07/31/19 17:21 Squamous Epi Cells Auto 1 /HPF 07/31/19 17:21 Urine Mucus (Auto) OCC /LPF 07/31/19 17:21 Urine Ascorbic Acid NEGATIVE (NEGATIVE) 07/31/19 17:21 07/31/19 07/31/19 08/01/19 17:21 19:40 01:35 Troponin I Cancelled < 0.012 < 0.012 08/01/19 07:43 Troponin I < 0.012 Impressions: Acute Abdomen Series 07/31/19 16:45 IMPRESSION: NONSPECIFIC BOWEL GAS PATTERN WITHOUT EVIDENCE FOR OBSTRUCTION. Plan Plan of Treatment: Follow-up with primary care provider within 1 week. Follow up with Dr. Mansfield for outpatient stress testing. Keep appointment for HIDA scan. Take medications as prescribed. Eat a heart healthy diet. Do NOT smoke. Return to emergency department as needed for concerning symptoms. Time Spent: Greater than 30 Minutes Stroke Is this a Stroke Patient?: No Acute Heart Failure - Is this a Heart Failure Patient?: No
[2019-08-02] MEDS ORDERED: LEVOTHYROXINE SODIUM 0.025 MG TABLET PO SCH (06:00)
[2019-08-02] MEDS ORDERED: LEVOTHYROXINE SODIUM 0.05 MG TABLET PO SCH (10:00)
== END 2019-08-01 15:30 | disposition home or self-care (01) ==
LOC: ER 16:11 → EH 21:07 → 4N 22:41
PROVIDERS: ADMIT Internal Medicine; ATTEND Registered Nurse
DX: R07.89 Other chest pain (principal); F41.1 Generalized anxiety disorder; K44.9 Diaphragmatic hernia without obstruction or gangrene; R63.0 Anorexia; R63.4 Abnormal weight loss; E03.9 Hypothyroidism, unspecified; R14.0 Abdominal distension (gaseous); I10 Essential (primary) hypertension; R53.1 Weakness; R55 Syncope and collapse; R14.2 Eructation; K82.4 Cholesterolosis of gallbladder; Z79.890 Hormone replacement therapy; Z79.899 Other long term (current) drug therapy; Z90.710 Acquired absence of both cervix and uterus; Z82.49 Family history of ischemic heart disease and other diseases of the circulatory system
CPT/HCPCS: 93005; 99285; 36415 ×2; 83690; 84443; 85025; 80053; 81001; 84484 ×2; 74022; 93010; A9270 ×8; S0028 ×2; J3490

== ENCOUNTER → 2019-08-04 | Outpatient (CLI) | payer MEDICARE, OTHER ==
--- NOTE | 2019-08-04 09:55 | RADIOLOGY REPORT (SQ) ---
EXAM DESCRIPTION: NM HIDA SCAN WITH CCK IMAGES COMPLETED DATE/TIME: 08/04/2019 9:34 am REASON FOR STUDY: NAUSEA (R11.0), OTHER DISEASES OF GALLBLADDER (K82.8) K82.8 OTHER SPECIFIED DISEA SES OF GALLBLADDER R11.0 NAUSEA COMPARISON: None. RADIONUCLIDE AND DOSE: DOSAGE RADIONUCLIDE: 5.38 millicuries Tc99m Mebrofenin. DOSAGE CCK: 1.1 micrograms. DOSAGE MORPHINE: Not required. The route of agent administration: Intravenous TECHNIQUE: Serial imaging right upper quadrant up to 60 minutes following injection of radionuclide. CCK injected after gallbladder visualized. LIMITATIONS: None. FINDINGS: LIVER: Normal visualization without areas of photopenia. INTRAHEPATIC BILE DUCTS: Normal size and no delay in visualization. COMMON BILE DUCT: Normal without dilatation. GALLBLADDER: Normal visualization. Calculated ejection fraction of 54%. Normal range is greater th an 35%. PHYSICAL RESPONSE: Patients presenting complaint was not reproduced. OTHER: No other significant finding. IMPRESSION: NORMAL STUDY WITHOUT CYSTIC OR COMMON DUCT OBSTRUCTION. NORMAL GALLBLADDER EJECTION FRA CTION. NO EVIDENCE FOR BILIARY DYSKINESIS. TECHNICAL DOCUMENTATION: JOB ID: [id number] [employer]- All Rights Reserved Reading location - IP/workstation name: [email or web address]
== END ==
LOC: RAD 07:23
PROVIDERS: ATTEND Nurse Practitioner Primary Care
DX: K82.8 Other specified diseases of gallbladder (principal); R11.0 Nausea; R63.4 Abnormal weight loss; R63.0 Anorexia
CPT/HCPCS: 78227; J2805; A9537; Q9969

== ENCOUNTER → 2020-03-13 | Outpatient (CLI) | payer MEDICARE, OTHER ==
[2020-03-13 11:25] LABS: ABSOLUTE EOSINOPHILS # (AUTO) 0.1 10^3/uL (0.0-0.6); ABSOLUTE LYMPHOCYTES (AUTO) 1.4 10^3/uL (0.5-4.7); ABSOLUTE MONOCYTES (AUTO) 0.4 10^3/uL (0.1-1.4); BASOPHILS % (AUTO) 0.8 % (0-2); EOSINOPHILS % (AUTO) 2.2 % (0-6); HEMATOCRIT 40.3 % (36.0-47.0); HEMOGLOBIN 13.7 g/dL (12.0-15.5); LYMPHOCYTES % (AUTO) 36.4 % (13-45); MEAN CORPUSCULAR HGB CONC 33.9 g/dL (32.0-36.0); MEAN CORPUSCULAR VOLUME 97 fl (80-97); MONOCYTES % (AUTO) 9.6 % (3-13); PLATELET COUNT 202 10^3/uL (150-450); RED BLOOD COUNT 4.15 10^6/uL (3.72-5.28); TOTAL CELLS COUNTED % (AUTO) 100 %; WHITE BLOOD COUNT 3.9 10^3/uL (4.0-10.5)
[2020-03-13 12:03] LABS: ERYTHROCYTE SEDIMENTATION RATE 11 mm/hr (0-30)
== END ==
LOC: LAB 10:59
PROVIDERS: ATTEND Ophthalmology
DX: H57.12 Ocular pain, left eye (principal)
CPT/HCPCS: 36415; 85025; 85652; 86140